=== PATIENT | male | born 1960 | race Caucasian/White ===

== ENCOUNTER 2017-02-28 21:56 | Inpatient (IN) | payer OTHER ==
[~2017-02-28] VITALS: Ht 175.3 cm; Wt 100.2 kg
[~2017-02-28 21:56] MED LIST: 0.9% Sodium Chloride 1,000 ML ONE; 0.9% Sodium Chloride 50 ML ONE; AMLO2.5T PO; ASPI-973 PO; ATOR20TA PO; Adenosine Inj 20 ML IV ONE; CLOP75TA3 PO; Heparin 1,000 Unit/mL 10 mL Inj ONE; Heparin 1,000 Units/500 mL NS Premix IV ONE; Heparin 10,000 Unit/1,000 mL NS Premix IV ONE; NITR0.4T SL; Nitroglycerin 50,000 mcg/250 mL D5W Premix IV ONE; RANI150T11 PO; fentaNYL-PF 50 mCg/mL 2 mL Inj ONE
[2017-02-28 22:06] VITALS: BP 149/72; PULSE 72; RESP 18; O2SAT 96
[2017-02-28] MEDS ORDERED: NITROGLYCERIN 0.6 MG SL PRN (22:15)
[2017-02-28] MEDS ORDERED: Heparin 5,000 Unit/mL Inj IVPUSH ONE (22:30)
[2017-02-28] MEDS ORDERED: Ondansetron 2 mg/mL 2 mL Inj IVPUSH PRN (22:30)
[2017-02-28] MEDS ORDERED: Heparin 5,000 Unit/mL Inj IVPUSH PRN (22:30)
[2017-02-28] MEDS ORDERED: Atropine 1 mg/10 mL (Code) Syringe IVPUSH PRN (22:30)
[2017-02-28] MEDS ORDERED: Senna-Docusate 8.6-50 mg Tablet PO PRN (22:30)
[2017-02-28] MEDS ORDERED: Polyethylene Glycol (PEG) 17 Gm Powder PO PRN (22:30)
[2017-02-28] MEDS ORDERED: Alum-Mag Hydrox-Simeth 30 mL Suspension PO PRN (22:30)
[2017-02-28] MEDS: Heparin 25K Unit/500mL 0.45 NS 25,000 UNIT in IV Premix 1 EACH IV SCH (23:17)
[2017-02-28] MEDS: 0.9% Sodium Chloride 1,000 ML IV SCH (23:20)
[2017-02-28 23:35] LABS: BASOPHILS % (AUTO) 0.3 % (0-3); EOSINOPHILS % (AUTO) 1.7 % (0-5); MONOCYTES % (AUTO) 7.8 % (4-12); Mean Corpuscular Hemoglobin 30.8 pg (27.0-35.0); Mean Corpuscular Volume 88.4 fL (81-100); NEUTROPHILS % (AUTO) 53.6 % (40-74); Platelet Count 148 bil/L (150-400)
[2017-03-01] VITALS (8 sets, daily range): BP systolic 119–142; BP diastolic 61–76; PULSE 50–77; RESP 18–22; O2SAT 95–98
--- NOTE | 2017-03-01 00:04 | PCM.HPMED ---
Subjective Date of Service Feb 28, 2017 Primary Provider: Admitting Physician: Da Shearer MD Primary Care Physician: Isma Hernandez MD Attending Physician: Da Shearer MD Chief Complaint: Chest pain History of Present Illness: Patient is a 56 year old male with history of CAD with history of KY and stents , GILL, and GERD who presents with chest pain. He was walking around on [facility] when he began to develop a sharp 7-8/10 central chest pain that radiated up to his neck and jaw and to his right arm. He reports associated shortness of breath with his pain, but had previously been in his usual state of health prior to the episode. He states he had been walking up and down hills yesterday without any dyspnea on exertion or chest discomfort. He does report intermittent left shoulder pain over the last 2 weeks, but states that this is not associated with exertion. He has a prior history of chronic left shoulder pain. He denies palpitations, dizziness, fainting, nausea, vomiting, diaphoresis , edema, leg pain, or any other symptoms at this time. EMS was called and he was taken by helicopter as a direct admit to [facility]. He was given aspirin and nitro on the way, and reports some relief of his chest pain. He has a history of admission for ACS on 08/19/2010 where he received a bare metal stent to the circumflex. He also received a drug eluting stent to the circumflex on 01/28/16. He was placed on dual antiplatelets for 1 year, and was taken off Plavix about 1 month ago. On arrival, vitals were stable with BP 149/72. Review of Systems: Comprehensive review of systems conducted and was negative except for the pertinent positives listed above. Allergies Coded Allergies: No Known Allergies (Unverified Allergy, Unknown, 01/28/16) enalapril (Unverified Allergy, Unknown, 01/28/16) from scanned pre cardio order Home Medications Amlodipine 2.5 mg daily Aspirin 81 mg dialy Atorvastatin 20 mg daily Nitroglycerin 0.4 mg SL PRN Ranitidine 150 mg BID PMH CAD with history of KY and baremetal and drug-coated stents to the circumflex Hyperlipidemia Obstructive sleep apnea GERD Surgical History Cardiac cath with stents Family History Multiple cousins and uncles - KY before age 60 Father: KY at age 42 No family history of diabetes or stroke Social History Hx Alcohol Use: No (occcasionally) Hx Substance Use: No Hx Tobacco Use: No Smoking Status: Never Smoker Exam Vital Signs Vital Sign - Last Date Time Temp Pulse Resp B/P Pulse Ox O2 Delivery O2 Flow Rate FiO2 02/28/17 22:06 36.8 72 18 149/72 96 Room Air Exam General: Alert, Oriented X3, Cooperative, No acute distress Head: Normocephalic, atraumatic. External ears normal. Eyes: PERRLA, EOMI. Anicteric sclerae. Mouth: Mouth normal, Mucous membranes moist/pink Neck: Neck supple with full range of motion. Chest& Lungs: Clear to auscultation bilaterally with no crackles, wheezes, or rhonchi. Cardiovascular: Regular rate/rhythm, Normal S1, Split S2, No murmurs/rubs/ gallops Abdomen: Non-tender, Non-distended, No masses, Normoactive bowel tones, Soft Musculoskeletal: Normal range of motion Extremities: No cyanosis/clubbing/edema bilaterally Neurological: Grossly neurologically intact. Normal speech Assessment & Plan Patient is a 56 year old male with history of CAD with history of KY and stents , GILL, and GERD who presents with chest pain. Acute chest pain. Present on admission. - Pt describes atypical chest pain, with a history of significant CAD with history of KY and stents. Describes sharp chest pain but no radiation to back, and pt is stable so dissection is unlikely. EKG showed Q waves and inverted T- waves in lead III. - Aspirin 81 mg daily - Clopidogrel 300 mg now and 75 mg daily - Nitro and morphine PRN - Oxygen as needed - Troponin and CK-MB ordered. Will trend troponin - Monitor on telemetry - Heparin gtt - Dr. Andrade will see in AM. We appreciate her input. - NPO after midnight. - Continue home atorvastatin Hyperlipidemia - Recent lipid panel 02/23/17: Chol 175, HDL 33, LDL 73, triglycerides 343. - Continue home atorvastatin GERD - Famotidine ordered Other Chronic Conditions CAD with history of KY and baremetal and drug-coated stents to the circumflex Obstructive sleep apnea - Bowel regimen as needed - Antiemetic as needed Patient is admitted under observation status with expected length of stay less than 2 midnights due to severity of presenting symptoms, risk of adverse event, and complexity of treatment plan. Ike Mazariegos Mar 01, 2017 00:03
[2017-03-01 00:19] LABS: Creatine Kinase 92 U/L (21-232); Magnesium 1.8 mg/dL (1.6-2.6)
[2017-03-01] MEDS: Sodium Chloride LOK Flush 10 mL Syringe IVFLUSH SCH ×4 (00:25→23:45)
[2017-03-01 05:03] LABS: BASOPHILS % (AUTO) 0.3 % (0-3); EOSINOPHILS % (AUTO) 1.4 % (0-5); MONOCYTES % (AUTO) 6.7 % (4-12); Mean Corpuscular Hemoglobin 31.2 pg (27.0-35.0); Mean Corpuscular Volume 88.4 fL (81-100); NEUTROPHILS % (AUTO) 56.9 % (40-74); Platelet Count 145 bil/L (150-400)
--- NOTE | 2017-03-01 05:57 | NUR ---
Admit Admitted to 3024 via EMS helicopter for evaluation and tx of CP. On arrival c/o 6/10 CP. Prn nitro SL administered x1 with initial decrease to 3/10 and then resolve of CP with no further episodes this shift. Tele SR along with EKG obtained during episode of CP. RA without c/o SOB. Denies n/v or issues with PO intake. Last BM reported 7/5 and denies issues with bowel or bladder. Good strength throughout without c/o dizziness or weakness. Heparin gtt initiated per cardiac protocol. Oriented to call light with return demonstration. Personal belongings at bedside per patient request.
[2017-03-01 06:20] LABS: Creatine Kinase 87 U/L (21-232)
--- NOTE | 2017-03-01 11:00 | NUR ---
heparin drip/ off unit Stopped heparin drip for stress test. 1115 CVL gave IV RX. Pt off unit at 1120. No s/s of distress. Addendum: 03/01/17 at 1342 by RODNEY SAEED RN patient back on unit at 1330. no s/s of distress. Addendum: 03/01/17 at 1510 by RODNEY SAEED RN Restarted heparin drip at 1000un/hr per protocol at 1508 after baseline ptt was drawn pt request d/t cp during stress test. Double verified with Jed Diaz.
--- NOTE | 2017-03-01 15:48 | NUR ---
Social Work: Screening/AM Multi-Disciplinary Rounds D: EMR reviewed. Pt is a 56 y/o male admitted for angina per H&P. Per MD in AM multi-disciplinary rounds, pt will be worked-up for stress test and echo today. SW met with pt at bedside, explained role, and wrote phone number on white board. Pt lives at home with his spouse in [place]. Pt's insurance is [employer] and PCP is Isma Hernandez. SW provided DPOA/advanced directive ppw and encouraged pt to return a copy to the hospital once complete. Pt states his spouse will transport him via POV when pt is medically stable. Per AM multi-disciplinary rounds, no discharge needs identified. SW will continue to follow if needs arise. A: Pt who is independent at baseline. P: Pt states his spouse will transport him via POV when pt is medically stable. Per AM multi-disciplinary rounds, no discharge needs identified. SW will continue to follow if needs arise. CHARLIE Dinero
--- NOTE | 2017-03-01 15:59 | DRSVH ---
PROCEDURE: 1 DAY TREADMILL STRESS TEST Rest and exercise myocardial perfusion SPECT with gated imaging and ejection fraction RADIOPHARMACEUTICAL: 11.1 mCi Tc-99m tetrafosmin IV at rest and 31.6 mCi Tc-99m tetrafosmin IV at pea k exercise. [id number] was performed. INDICATIONS: CHEST PAIN TECHNIQUE: Radiopharmaceutical was injected at peak stress test, and also at rest. SPECT images wer e obtained. SPECT myocardial perfusion images were displayed in short axis, horizontal long axis, an d vertical long axis views. Gated images were reviewed using Auto[employer]ANT software. COMPARISON: None. CARDIAC STRESS: A standard Dave treadmill exercise tolerance test was performed by the patient under the supervision of an attending staff. The patient exercised for 7 minutes and 2 seconds; functional aerobic impair ment (SHANE) is +25 %. Hemodynamic data: There is normal blood pressure and heart rate response to exercise stress. Patien t achieved 73% of maximum predicted heart rate at peak exercise. Symptoms: Patient had typical chest pain concerning for angina with radiation down arms and also had jaw discomfort. EKG: No diagnostic EKG changes of ischemia; no ectopy. FINDINGS: Raw data: There is good myocardial labeling by radiotracer. No significant motion artifacts. Left ventricle function: Gated images demonstrate normal left ventricle wall thickening. No segment al wall motion abnormality. The left ventricle resting end-diastolic volume is 102 mL. Left ventric le stress ejection fraction is 59%; normal values are above 45%. Myocardial perfusion: There is apical perfusion defect with moderate intensity noted on the supine s tress images. On prone stress images the defect actually worsens. On supine resting images the perfus ion defect completely normalizes. IMPRESSION: Moderately abnormal myocardial perfusion study. Apical reversible perfusion defect consis tent with ischemia most likely suggestive of LAD obstructive disease. Ejection fraction is normal. Ty pical exertional chest pain concerning for angina. Chest pain is limiting. Consider coronary angiogra phically to further delineate patient's coronary anatomy. Dictated by: Delmar Reyes Jr., M.D. on 03/01/2017 at 15:39 Approved by: Delmar Reyes Jr., M.D. on 03/01/2017 at 15:58
--- NOTE | 2017-03-01 17:40 | NUR ---
OFF unit Pt went to room 2017 to visit a friend. Tele notified and accompanied by a [employer] PSYCHIATRIST. Approved by charge nurse. No s/s of distress
--- NOTE | 2017-03-01 18:05 | CONS ---
[address] [address] CONSULTATION REPORT PATIENT: DAVID KRISHNAMURTHY : 1960 MR#: [id number] ADMIT: 02/28/2017 JOB ID: [id number] DATE OF SERVICE: 03/01/2017 CARDIOLOGY CONSULTATION: IDENTIFICATION: Dr. Baldwin has asked that I consult on this 56-year-old male with known coronary disease admitted with CAD and an abnormal stress test. HISTORY OF PRESENT ILLNESS: The patient's cardiac history dates back to July 2010 when he was admitted with a sharp midsternal chest discomfort radiating to the neck with abnormal troponins. Cardiac catheterization at that time revealed a 99% mid left circumflex stenosis that was successfully treated with a bare metal stent. There is mild disease in the LAD and the right coronary artery and an echocardiogram showed preserved LV systolic function. He subsequently did well and had a normal myocardial perfusion study at [facility] in April 2015. He has been followed by Dr. Andrade and was doing well until January 2016 when he again developed exertional chest discomfort radiating to the neck, particularly after meals. Cardiac catheterization now revealed a 50% stenosis in the mid LAD after this 1st diagonal and a 90% in-stent restenoses of the mid left circumflex that was successfully treated with a drug-eluting stent with an excellent angiographic result. There was no significant disease in the right coronary artery. He subsequently had resolution of his chest discomfort and again did well, and was most recently seen by Dr. Andrade on February 09, 2017, at which time his Plavix was stopped. He remained in his usual state of health and was quite active, without any symptoms until yesterday morning when he developed his usual chest discomfort radiating into the right neck that was steady, while walking to prepare lunch in his boat. This lasted around 5-10 minutes and subsequently resolved without any recurrence despite being fairly active but then returned following dinner yesterday evening. It was more severe. It came on at rest and worsened with walking, requiring him to stop. It improved but never completely resolved and medics were summoned and he was treated with nitroglycerin and aspirin with resolution of his symptoms. He was then transported to [facility] ED where he again had a brief episode of chest discomfort for around 5 minutes, again treated with sublingual nitroglycerin with relief of the discomfort, with none since then. He notes some slight dyspnea with these discomforts but none otherwise. He had no sense of any palpitations. He was admitted and has remained chest pain free but underwent exercise treadmill testing this afternoon with development of his chest discomfort. His EKG remained normal but on perfusion imaging, which I have personally reviewed, there is a small to moderate sized distal anterior and apical reversible defect consistent with ischemia. CARDIAC RISK FACTORS: No history of tobacco use or diabetes. He has had well-controlled hypertension. He has had hyperlipidemia, with his most recent lipid panel from February 23, 2017 showing a total cholesterol 175 with an HDL of 33 and an LDL of 73, with a triglyceride of 343. He has a fairly strong family history for coronary artery disease with a father having an AZ at less than 60 years old. PAST MEDICAL HISTORY: Notable for obstructive sleep apnea for which he uses CPAP on a regular basis. He has a history of chronically elevated abnormal liver function tests but these have normalized on his most recent laboratory. HOME MEDICATIONS: 1. Amlodipine 2.5 mg daily. 2. Atorvastatin 20 mg daily. 3. Ranitidine 150 mg b.i.d. 4. Aspirin 81 mg daily. ALLERGIES: No known drug allergies. FAMILY HISTORY: As above. His father had an AZ at age 42, and several cousins and uncles also had MIs before age 60. 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 He has one alcoholic beverage per week on average. He denies any recreational drug use. REVIEW OF SYSTEMS: A complete review is performed and is notable for the absence of any recent fevers or chills or weight change, with the exception of slow progressive weight gain over the past year. He denies any vision change or ENT problems. Denies any significant dyspnea, cough, hemoptysis. No history of peptic ulcer disease or GI blood loss. Denies any genitourinary complaints including any hematuria. No unusual musculoskeletal discomforts. Denies any neurologic symptoms. No history of any thyroid or bleeding disorder, or any unusual anxiety or depression. PHYSICAL EXAMINATION: Pleasant, mildly obese, but otherwise healthy-appearing middle-aged male in no distress. HR : 50s. BP 125/76. O2 saturation 95% on room air. Weight is 103.6 kg. Skin: Warm and dry. He is well tanned. HEENT: EOMI without arcus. He has good dentition. Lungs: Clear bilaterally to auscultation. No rales or wheeze. CV: Nonpalpable PMI with a regular rhythm with a normal S1 and S2 without any appreciable murmurs or gallops. There is no JVD. Carotid and femoral pulses are 2+ bilaterally with a normal upstroke without bruit. Dorsalis pedis pulses are 1+ bilaterally and posterior tibial pulses are 2+ bilaterally. Abdomen: Mildly obese, but nondistended and nontender, without any palpable masses or organomegaly. Normal bowel tones are present without bruits. Extremities: Warm, without any clubbing, cyanosis, or edema. Neuro: Moves all four extremities. Psych: Awake, alert, and oriented. LABORATORY: White count is 7.8 with hematocrit of 42%. Platelet count 145,000. Potassium is 4.1 with a BUN of 20 and a creatinine of 1.1. Glucose 123. A1c is pending. Troponins have remained negligible. TSH is normal at 2.5. LFTs are normal. EKG: Shows sinus rhythm at 73 beats per minute and is normal, without any acute ST-segment abnormalities. IMPRESSION: 1. Probable unstable angina. His description of his discomfort is quite compelling for angina given its similarity to his previous anginal pain. It was easily provoked on treadmill testing and, while there is no significant ECG change, perfusion imaging is quite suggestive of a mid to distal LAD distribution area of ischemia, suggesting progression of his previous known stenosis to now a significant degree. As such, I have recommended proceeding with cardiac catheterization and possible percutaneous revascularization. I have discussed the procedure, which he is very well familiar with, and he agrees to proceed. In the meantime, I would continue with IV heparin and his other medications with the exception of increasing his atorvastatin to 40 mg daily. I will contact Dr. Lerner, who will perform the procedure, with further recommendations dependent upon those results. 2. Hyperlipidemia. Inadequately controlled on his most recent lipid panel. I will increase his atorvastatin but he may benefit from changing to rosuvastatin if his triglycerides remain elevated. I will defer this to the outpatient setting and Dr. Andrade. 3. Obstructive sleep apnea. Apparently well controlled with the use of CPAP. 4. History of abnormal LFTs. They have now normalized. PLAN: 1. Continue current medications and proceed with cardiac catheterization in the morning with further recommendations dependent upon those results. 2. Increase his atorvastatin to 40 mg daily. 3. Continue close observation of his lipids as an outpatient. 4. Continue to monitor his blood sugar given the slight elevation noted on his fasting specimens this morning. His A1c is pending. TIME: I spent 1 hour and 34 minutes reviewing the patient's medical record, reviewing his perfusion imaging studies, interviewing and examining the patient, and answering his questions.
--- NOTE | 2017-03-01 18:24 | PCM.PNMED ---
Subjective Date of Service Mar 01, 2017 Subjective Patient is a 56 year old male with history of CAD with history of IA and stents , GILL, and GERD who presents with chest pain. He was walking around on [facility] when he began to develop a sharp 7-8/10 central chest pain that radiated up to his neck and jaw and h/is right arm. 03/01/17 - patient denies any pain currently. plan is for stress test today Exam Vital Signs Vital Sign - Last Date Time Temp Pulse Resp B/P Pulse Ox O2 Delivery O2 Flow Rate FiO2 03/01/17 17:35 36.6 67 20 142/72 95 Room Air 03/01/17 00:26 2.00 Intake and Output 02/28/17 02/28/17 03/01/17 Cumulative From/Thru 15:00 23:00 07:00 02/28/17 22:13 - 03/01/17 06:26 Intake Total 914 ml 914 ml Output Total 800 ml 800 ml Balance 114 ml 114 ml Intake Oral 200 ml 200 ml IV Total 714 ml 714 ml Output Urine Total 800 ml 800 ml Exam General: Alert, Oriented X3, Cooperative, No acute distress Head: Normocephalic, atraumatic. External ears normal. Eyes: PERRLA, EOMI. Anicteric sclerae. Mouth: Mouth normal, Mucous membranes moist/pink Neck: Neck supple with full range of motion. Chest& Lungs: Clear to auscultation bilaterally with no crackles, wheezes, or rhonchi. Cardiovascular: Regular rate/rhythm, Normal S1, Split S2, No murmurs/rubs/ gallops Abdomen: Non-tender, Non-distended, No masses, Normoactive bowel tones, Soft Musculoskeletal: Normal range of motion Extremities: No cyanosis/clubbing/edema bilaterally Neurological: Grossly neurologically intact. Normal speech Lab and Diagnostics Result Diagram: 03/01/17 0426 03/01/17 0426 Assessment & Plan Patient is a 56 year old male with history of CAD with history of IA and stents , GILL, and GERD who presents with chest pain. Acute chest pain. Present on admission. - Pt describes atypical chest pain, with a history of significant CAD with history of IA and stents. Describes sharp chest pain but no radiation to back, and pt is stable so dissection is unlikely. EKG showed Q waves and inverted T- waves in lead III. - Aspirin 81 mg daily and 75 mg daily - Nitro and morphine PRN - Oxygen as needed - Will trend troponin - Monitor on telemetry - Heparin gtt. - Continue home atorvastatin - wait cardiology evaluation Hyperlipidemia - Recent lipid panel 02/23/17: Chol 175, HDL 33, LDL 73, triglycerides 343. - Continue home atorvastatin GERD - Famotidine ordered Other Chronic Conditions CAD with history of IA and baremetal and drug-coated stents to the circumflex Obstructive sleep apnea - Bowel regimen as needed - Antiemetic as needed Disposition: pending stress test Pain Evaluation: Other Resuscitation Status: CPR: Attempt Resuscitation Siddharth Baldwin MD Mar 01, 2017 18:24
[2017-03-01] MEDS: 0.9% Sodium Chloride 1,000 ML IV SCH ×2 (23:26→23:45)
[2017-03-02] VITALS (17 sets, daily range): BP systolic 120–157; BP diastolic 56–84; PULSE 48–69; RESP 10–18; O2SAT 95–98
[2017-03-02] MEDS: Heparin 25K Unit/500mL 0.45 NS 25,000 UNIT in IV Premix 1 EACH IV SCH (03:07)
[2017-03-02 06:57] LABS: Mean Corpuscular Hemoglobin 31.2 pg (27.0-35.0); Mean Corpuscular Volume 87.5 fL (81-100)
[2017-03-02] MEDS: Sodium Chloride LOK Flush 10 mL Syringe IVFLUSH SCH (08:30)
--- NOTE | 2017-03-02 10:00 | NUR ---
PTT Heparin gtt infusing at 1050 units/hour. Call from lab, PTT 62. No change to heparin gtt. Call light in place, will continue to monitor. Addendum: 03/02/17 at 1240 by SHIKHA SANDHU RN Heparin gtt stopped at 1150, prior to being take to microbiology lab assistant. IV Saline locked.
--- NOTE | 2017-03-02 11:38 | PCM.PNMED ---
Subjective Date of Service Mar 02, 2017 Subjective Patient is a 56 year old male with history of CAD with history of ND and stents , GILL, and GERD who presents with chest pain. He was walking around on [facility] when he began to develop a sharp 7-8/10 central chest pain that radiated up to his neck and jaw and h/is right arm. 03/02/17 - patient denies any pain currently. He did go for stress test today that was abnormal there were some reversible deficits noted. Cardiology has seen him. The plan is for the Sql Ssrs Developer today concerns for patient and nursing staff. Exam Vital Signs Vital Sign - Last Date Time Temp Pulse Resp B/P Pulse Ox O2 Delivery O2 Flow Rate FiO2 03/02/17 09:06 36.4 55 18 155/80 98 Room Air 03/01/17 00:26 2.00 Intake and Output 03/01/17 03/01/17 03/02/17 Cumulative From/Thru 15:00 23:00 07:00 02/28/17 22:13 - 03/02/17 06:00 Intake Total 1660 ml 1857 ml 4431 ml Output Total 1650 ml 2450 ml Balance 10 ml 1857 ml 1981 ml Intake Oral 800 ml 636 ml 1636 ml IV Total 860 ml 1221 ml 2795 ml Output Urine Total 1650 ml 2450 ml # Voids 4 4 # Bowel Movements 0 0 Exam General: Alert, Oriented X3, Cooperative, No acute distress Head: Normocephalic, atraumatic. External ears normal. Eyes: PERRLA, EOMI. Anicteric sclerae. Mouth: Mouth normal, Mucous membranes moist/pink Neck: Neck supple with full range of motion. Chest& Lungs: Clear to auscultation bilaterally with no crackles, wheezes, or rhonchi. Cardiovascular: Regular rate/rhythm, Normal S1, Split S2, No murmurs/rubs/ gallops Abdomen: Non-tender, Non-distended, No masses, Normoactive bowel tones, Soft Musculoskeletal: Normal range of motion Extremities: No edema bilaterally Neurological: Grossly neurologically intact. Normal speech Lab and Diagnostics Result Diagram: 03/02/1760603/02/17 06 Assessment & Plan Patient is a 56 year old male with history of CAD with history of ND and stents , GILL, and GERD who presents with chest pain. Acute chest pain. Present on admission. Coronary artery disease with known history of PTCA and stenting Patient did have abnormal stress test. The plan is for crime lab analyst today. Pending results of whether not he needs further stenting or not will determine his discharge planning. Otherwise he is continued on heparin drip has been on aspirin Plavix statin. Continue with telemetry. Again his chest she has resolved she has been asymptomatic since he has been here Hyperlipidemia - Recent lipid panel 02/23/17: Chol 175, HDL 33, LDL 73, triglycerides 343. - Continue home atorvastatin GERD - Famotidine ordered Other Chronic Conditions CAD with history of ND and bare metal and drug-coated stents to the circumflex Obstructive sleep apnea - Bowel regimen as needed - Antiemetic as needed Disposition: pending Sql Ssrs Developer Resuscitation Status: CPR: Attempt Resuscitation Siddharth Baldwin MD Mar 02, 2017 11:38
[2017-03-02] MEDS: 0.9% Sodium Chloride 1,000 ML IV SCH (11:56)
--- NOTE | 2017-03-02 12:00 | NUR ---
Off the unit Pt taken from [facility] to label maker via bed. No complains of increased pain, chest discomfort or pressure. Pt instructed to void prior to leaving. IV saline locked x 2.
--- NOTE | 2017-03-02 14:14 | DI95 ---
[place] [id number] INTERVENTIONAL CARDIAC CATHETERIZATION PATIENT: DAVID KRISHNAMURTHY : 1960 MR#: [id number] ADMIT: 02/28/2017 JOB ID: [id number] DATE: 03/02/2017 PATIENT PROFILE: The patient is a 56-year-old male with history of dyslipidemia and family history of coronary artery disease. He had stent placement to the circumflex artery in July of 2010 and January of 2016. He experienced recurrent chest discomfort. PROCEDURE: 1. Retrograde left heart catheterization. 2. Selective coronary angiography. 3. Fractional flow reserve to the mid left anterior descending. 4. Balloon angioplasty and stenting to the distal left anterior descending. 5. Left ventricular angiogram. VASCULAR CLOSURE DEVICE: StarClose. COMPLICATIONS: None. METHOD: Retrograde left heart catheterization was performed from the right groin under 1% lidocaine local anesthesia using a 6-Togolese sheath. Selective coronary angiogram was performed in multiple projections, including cranial and caudal angulations with hand injected contrast via JL4 and 3DRC catheters. Heparin 3,000 units were given. A 6-Togolese JL-4 guide was advanced to the left coronary ostium. A flow wire was directed into the left anterior descending artery. Adenosine was given infusion IV. FFR of the mid left anterior descending artery was measured at 0.89. Additional 8,000 units were given. A Run-through wire was placed inside the left anterior descending artery. A guideliner was used for better support.The distal left anterior descending artery lesion was pre-dilated with a 2.0 x 15 mm balloon. A Xience 2.25 x 15 mm stent was placed inside the distal left anterior descending artery lesion and deployed at 12 atmospheres for 25 seconds. Nitroglycerin 100 mcg was given intracoronary. Final angiogram was obtained. A 6-Togolese angulated pigtail catheter was advanced to the left ventricle and left ventricular angiogram was performed in the 30 degree COLBERT view by injecting contrast at the rate of 10 cc/second for 3 seconds. This catheter was withdrawn. Right femoral angiogram was performed. Following sheath removal, hemostasis was achieved by using a StarClose device. The patient tolerated the procedure well. He was transferred to [facility] in good condition. TOTAL CONTRAST USED: 90 cc. FLUOROSCOPY TIME: 5.5 minutes. RESULTS: 1. Selective coronary angiogram: a. Left main coronary artery is normal. b. The left anterior descending artery is transapical and has long 60 % stenosis in the mid portion and 80% stenosis in the distal portion distal to the takeoff of the second diagonal branch. The very distal part of the left anterior descending artery around the apex has long 70% stenosis. The diagonal branches have minor irregularity. c. The circumflex artery has minor irregularity. The previous stent site remains patent. d. The dominant and large right coronary artery has 30% stenosis in the mid portion. 2. FFR of the mid left anterior descending artery is 0.89, which indicates nonhemodynamic significant stenosis. 3. Balloon angioplasty and stenting was performed to the distal left anterior descending artery by deploying one drug eluting stent (2.25 x 15 mm) to achieve an excellent angiographic result with TIARA-3 flow distally. 4. Left ventricular angiogram demonstrates normal left ventricular systolic function (LVEF 60%). There is no wall motion abnormality. There is no mitral regurgitation. 5. There is no gradient across the aortic valve on catheter withdrawal. 6. Aortic pressure is 134/62 mmHg. Left ventricular pressure is 134/2 mmHg. 7. Left ventricular end-diastolic is 12 mmHg. CONCLUSION: 1. Patent left circumflex artery stent. 2. Moderate disease of the mid left anterior descending artery with severe 80% stenosis of the distal left anterior descending. 3. The distal left anterior descending artery lesion was successfully treated with one drug eluting stent. 4. Left ventricular ejection fraction 60%. 5. Left ventricular end-diastolic pressure is 12 mmHg. MTDD
--- NOTE | 2017-03-02 16:32 | NUR ---
Report called to Jessy Isabel R.N and handoff at bedside upon transfer.Prior to transfer right groin dressing noted to be partially saturated. Dressing removed, ultrafoam placed over site with gauze, secured with opsite and 5 lb weight replaced over site. No c/o undue discomfirt at groin site. He remains chest pain free, sinus rhythm, occasionally decreasing to 47 range.V.S.S. Pt's at the bedside.
--- NOTE | 2017-03-02 17:15 | NUR ---
Transfer of care Report called to Kaden Cristina Pt transferred to 2025.
[2017-03-02] MEDS ORDERED: 0.9% Sodium Chloride 250 ML BOLUS IV PRN (18:10)
[2017-03-02] MEDS ORDERED: Sodium Chloride LOK Flush 10 mL Syringe IVFLUSH PRN (18:10)
[2017-03-02] MEDS ORDERED: Ondansetron 2 mg/mL 2 mL Inj IVPUSH PRN (18:10)
[2017-03-02] MEDS ORDERED: Atropine 1 mg/10 mL (Code) Syringe IVPUSH PRN (18:10)
[2017-03-02] MEDS ORDERED: 0.9% Sodium Chloride 1,000 ML IV ONE (18:15)
--- NOTE | 2017-03-02 19:04 | NUR ---
Post cath/Oozing Patient a/o x 4, arrived to 2021 from [facility] at approx 1630. Patient denies pain, nausea or sob. VSS, tele SB-SR 50-60's. Right groin site soft apon arrival to floor, approx 1 hr patient right groin drsg saturated and hardened around puncture site. library clerical assistant in to assess groin site. Drsg changed and manual pressure done for 7 min. [address] L[address]bag remains in[address]. Dr Hummel paged and orders recieved to cont bedrest until a.m.
[2017-03-03 03:08] VITALS: BP 154/85; PULSE 67; RESP 12; O2SAT 95
[2017-03-03 03:45] LABS: Mean Corpuscular Hemoglobin 31.2 pg (27.0-35.0); Mean Corpuscular Volume 87.1 fL (81-100)
--- NOTE | 2017-03-03 03:57 | NUR ---
P: R groin cath site oozing I: change dressing, 5lb sandbag, keep R leg straight E: Denies pain, dyspnea, N/V. R groin tender, soft. At 2130 manual pressure held for 10 minutes and replace dressing w/ rolled 4x4 and pressure tape. No further oozing. R pulse intact. Tele SR. Moderately high BP. RA sats in mid 90s. Voiding via urinal. RA sats mid 90s. Occasionally snores.
[2017-03-03 05:28] VITALS: PULSE 70
[2017-03-03 08:43] VITALS: BP 143/87; PULSE 66; RESP 16; O2SAT 96
[2017-03-03 08:44] VITALS: PULSE 76
--- NOTE | 2017-03-03 09:13 | NUR ---
Groin site stable/up ad isaac VVS, SR 69. Rt groin site without further oozing; no hematoma. Distal pulses 1+, equal. Dsg removed, op-site placed & pt teaching reviewed regarding observation & care of groin site. Ambulating in saha without difficulty; denies chest pain.
[2017-03-03] MEDS ORDERED: CLOP75TA3 PO (10:45)
[2017-03-03] MEDS ORDERED: METO25TA99 PO (10:45)
[2017-03-03] MEDS ORDERED: ATOR20TA PO (10:45)
--- NOTE | 2017-03-03 10:52 | PCM.DIMED ---
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 teacher Continue Aspirin 81 mg daily Clopidogrel (Plavix) 75 mg daily for one year (04/03/17) or until reviewed by your grades 1 thru 6 home teacher Nitroglycerin sublingual tablet as needed for chest pain Changes Increased Atorvastatin from 20 mg to 40 mg daily Diet Discharge Diet: Heart Healthy (Decrease your red meat consumption) Activity Discharge Activity: Other (Avoid lifting more than 5 lbs of weight and light activity for 1 week.) Call your provider Call your provider for: Fever or Chills, Shortness of breath, Bleeding, Chest pain, Weakness (unilateral) Patient Instructions Patient Instructions New Medications Metoprolol 25 mg once daily until reviewed by 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 Andrade in 2-4 weeks. Avoid lifting more than 5 lbs for the next week. Light activity for 1 week, then may advance activity level as tolerated. Try to make dietary modifications and work on exercising regularly We have ordered cardiac rehab for you. Book recommedations: Author Dr. Aníbal Pisano - [facility] - Un[facility] - Track your Plaque Follow-up Provider: Isma Hernandez MD Follow-up with PCP in: 1 week (1-2 weeks) Provider: Renu Andrade MD Follow-up in: 2 weeks (2-4 weeks) Rigo Forde MD 03/03/17 1708: Discharge Instructions Attending's Statement The patient was seen and examined together with Dr. Johnson on 03/03/2017 and I agree with the history, exam and plan as outlined in the note above. . Nav Johnson DO Mar 03, 2017 10:39 Rigo Forde MD Mar 03, 2017 17:08
[2017-03-03] MEDS ORDERED: NITR0.4T SL (11:47)
--- NOTE | 2017-03-03 13:45 | NUR ---
Discharge Discharge packet including meds, follow-up appts, instructions reviewed in detail & signed by pt. 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 In w/c accompanied by RN & his family to waiting vehicle, destination his home.
--- NOTE | 2017-03-03 13:46 | NUR ---
Social Work: Multidisciplinary Rounds/Discharge D: Pt discussed in am rounds. Pt is medically stable for discharge. Pt transferred up to [facility] after stent placement yesterday. Pt has active D/c orders. MD and team have no concerns about pt's capacity for self care and pt has been participating in all self care during admission. No sw or discharge needs identified. A: Pt who is I at baseline. P: Pt to discharge home via POV and no sw needs. CHARLIE Her
--- NOTE | 2017-03-03 16:00 | PCM.DC.MED ---
Discharge Summary Date of Service Mar 03, 2017 Dates of Hospitalization Date of Hospital Admission Feb 28, 2017 at 21:56 Date of Discharge: Mar 03, 2017 Providers: Admitting Physician: Da Shearer MD Primary Care Physician: Isma Hernandez MD Attending Physician: Rigo Forde MD Research Group Director: Genevieve Johnson DO Diagnosis at Time of Discharge Diagnosis at Time of Discharge Unstable Angina s/p stenting to LAD (03/02/17) Coronary artery disease with known history of PTCA and stenting Hyperlipidemia GERD Obstructive Sleep Apnea Consultations Cardiology, Dr. Durand Procedures ECG 12 Lead Q waves and inverted T-waves in lead III on EKG Invasive Procedures PROCEDURE: 1. Retrograde left heart catheterization. 2. Selective coronary angiography. 3. Fractional flow reserve to the mid left anterior descending. 4. Balloon angioplasty and stenting to the distal left anterior descending. 5. Left ventricular angiogram. RESULTS: 1. Selective coronary angiogram: a. Left main coronary artery is normal. b. The left anterior descending artery is transapical and has long 60 % stenosis in the mid portion and 80% stenosis in the distal portion distal to the takeoff of the second diagonal branch. The very distal part of the left anterior descending artery around the apex has long 70% stenosis. The diagonal branches have minor irregularity. c. The circumflex artery has minor irregularity. The previous stent site remains patent. d. The dominant and large right coronary artery has 30% stenosis in the mid portion. 2. FFR of the mid left anterior descending artery is 0.89, which indicates nonhemodynamic significant stenosis. 3. Balloon angioplasty and stenting was performed to the distal left anterior descending artery by deploying one drug eluting stent (2.25 x 15 mm) to achieve an excellent angiographic result with TIARA-3 flow distally. 4. Left ventricular angiogram demonstrates normal left ventricular systolic function (LVEF 60%). There is no wall motion abnormality. There is no mitral regurgitation. 5. There is no gradient across the aortic valve on catheter withdrawal. 6. Aortic pressure is 134/62 mmHg. Left ventricular pressure is 134/2 mmHg. 7. Left ventricular end-diastolic is 12 mmHg. CONCLUSION: 1. Patent left circumflex artery stent. 2. Moderate disease of the mid left anterior descending artery with severe 80% stenosis of the distal left anterior descending. 3. The distal left anterior descending artery lesion was successfully treated with one drug eluting stent. 4. Left ventricular ejection fraction 60%. 5. Left ventricular end-diastolic pressure is 12 mmHg. Other Diagnostics PROCEDURE: 1 DAY TREADMILL STRESS TEST CARDIAC STRESS: A standard Dave treadmill exercise tolerance test was performed by the patient under the supervision of an attending staff. The patient exercised for 7 minutes and 2 seconds; functional aerobic impairment (SHANE) is +25 %. Hemodynamic data: There is normal blood pressure and heart rate response to exercise stress. Patient achieved 73% of maximum predicted heart rate at peak exercise. Symptoms: Patient had typical chest pain concerning for angina with radiation down arms and also had jaw discomfort. EKG: No diagnostic EKG changes of ischemia; no ectopy. FINDINGS: Raw data: There is good myocardial labeling by radiotracer. No significant motion artifacts. Left ventricle function: Gated images demonstrate normal left ventricle wall thickening. No segmental wall motion abnormality. The left ventricle resting end-diastolic volume is 102 mL. Left ventricle stress ejection fraction is 59% ; normal values are above 45%. Myocardial perfusion: There is apical perfusion defect with moderate intensity noted on the supine stress images. On prone stress images the defect actually worsens. On supine resting images the perfusion defect completely normalizes. IMPRESSION: Moderately abnormal myocardial perfusion study. Apical reversible perfusion defect consistent with ischemia most likely suggestive of LAD obstructive disease. Ejection fraction is normal. Typical exertional chest pain concerning for angina. Chest pain is limiting. Consider coronary angiographically to further delineate patient's coronary anatomy. Dictated and approved by: Delmar Reyes Jr., M.D. on 03/01/2017 at 15:39 Brief History Fish Fairchild is a 56 year old gentleman with past medical history of CAD with KS and stents x2 (2009, 2016), GILL, and GERD who presented with chest pain. He was walking around on [facility] when he began to develop a sharp 7-8/10 central chest pain that radiated up to his neck and jaw and to his right arm and associated shortness of breath with exertion. On admission, he had troponin x2 at 0.010, with Q waves and inverted T-waves in lead III on EKG. He was admitted for unstable angina. Treadmill stress test reproduced his symptoms fairly quickly and Dr. Druand was consulted for cardiac catheterization. On cardiac catherization, he was found to have 80% occlusion of the LAD and was subsuquently stented successfully. Following the procedure, patient feeling well. He was discharged on Plavix, aspirin, nitroglycerin, metoprolol and atorvastatin. Hospital Course Patient is a 56 year old male with history of CAD with history of KS and stents , GILL, and GERD who presented with chest pain. Acute chest pain. Present on admission. Pt described atypical chest pain, with a history of significant CAD with history of KS and stents. Describes sharp chest pain but no radiation to back, and pt is stable so dissection is unlikely. EKG showed Q waves and inverted T- waves in lead III. - Aspirin 81 mg daily, Clopidogrel 300 mg now and 75 mg daily, Nitro and morphine PRN - Oxygen as needed - Troponinx2 0.010 - Monitored on telemetry - Heparin gtt - Cardiac cath with stenting to LAD 03/02/17 Coronary artery disease with known history of PTCA and stenting Patient did have abnormal stress test. 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 Hyperlipidemia - Recent lipid panel 02/23/17: Chol 175, HDL 33, LDL 73, triglycerides 343. - Continued home atorvastatin GERD - Famotidine ordered CAD with history of KS and bare metal and drug-coated stents to the circumflex Obstructive sleep apnea, chronic Exam Vital Signs (Last) Date Time Temp Pulse Resp B/P Pulse Ox O2 Delivery O2 Flow Rate FiO2 03/03/17 08:44 76 03/03/17 08:43 37.0 16 143/87 96 Room Air 03/01/17 00:26 2.00 Exam General: Alert, Oriented X3, Cooperative, No acute distress Head: Normocephalic, atraumatic. External ears normal. Eyes: PERRLA, EOMI. Anicteric sclerae. Mouth: Mouth normal, Mucous membranes moist/pink Neck: Neck supple with full range of motion. Chest& Lungs: Clear to auscultation bilaterally with no crackles, wheezes, or rhonchi. Cardiovascular: Regular rate/rhythm, No murmurs/rubs/gallops Abdomen: Non-tender, Non-distended, No masses, Normoactive bowel tones, Soft Musculoskeletal: Normal range of motion Extremities: No cyanosis/clubbing/edema bilaterally Neurological: Grossly neurologically intact. Normal speech Test 02/28/17 23:15 03/01/17 04:26 03/02/17 08:28 03/03/17 03:05 Hemoglobin A1c 5.5% (4.8-5.6) Magnesium Level 1.8mg/dL (1.6-2.6) Total Bilirubin 0.4mg/dL (0.0-1.2) Aspartate Amino Transf (AST/SGOT) 22U/L (0-50) Alanine Aminotransferase (ALT/SGPT) 29U/L (0-44) Alkaline Phosphatase 59U/L (25-150) Total Protein 5.6g/dL (6.4-8.4) Albumin 3.7g/dL (3.4-5.0) Thyroid Stimulating Hormone (TSH) 2.510uIU/mL (0.450-4.500) Neutrophils (%) (Auto) 56.9% (40-74) Lymphocytes (%) (Auto) 34.4% (14-46) Monocytes (%) (Auto) 6.7% (4-12) Eosinophils (%) (Auto) 1.4% (0-5) Basophils (%) (Auto) 0.3% (0-3) Total Creatine Kinase 87U/L (21-232) Creatine Kinase MB 1.9ng/mL (0.0-10.4) Creatine Kinase MB % % (0.0-5.0) Troponin T 0.010ug/L (0.0-0.011) Activated Partial Thromboplast Time 62.0sec (22.8-33.0) White Blood Count 9.8th/mm3 (3.8-10.1) Red Blood Count 5.19mil/mm3 (4.40-5.80) Hemoglobin 16.2g/dL (13.8-17.2) Hematocrit 45.2% (41.0-50.0) Mean Corpuscular Volume 87.1fL (81-100) Mean Corpuscular Hemoglobin 31.2pg (27.0-35.0) Mean Corpuscular Hemoglobin Concent 35.8% (32.0-37.0) Red Cell Distribution Width 13.0% (12.3-15.4) Platelet Count 146bil/L (150-400) Sodium Level 141mEq/L (134-144) Potassium Level 3.9mEq/L (3.5-5.2) Chloride Level 103mEq/L (97-108) Carbon Dioxide Level 22mmol/L (18-29) Blood Urea Nitrogen 17mg/dL (6-24) Creatinine 1.00mg/dL (0.76-1.27) Estimat Glomerular Filtration Rate 82mL/min (>59) Glucose Level 100mg/dL (60-99) Calcium Level 9.3mg/dL (8.5-10.1) Discharge Medications Discharge Medications Aspirin (Aspirin) 81 Mg Tablet 81 MG PO DAILY (Reported) Atorvastatin (Lipitor) 20 Mg Tablet 40 MG PO DAILY Prescribed by: GENEVIEVE JOHNSON, Clopidogrel Bisulfate (Plavix) 75 Mg Tablet 75 MG PO DAILY Prescribed by: GENEVIEVE JOHNSON, Metoprolol Succinate ER (Metoprolol Succinate ER) 25 Mg Tab.er.24h 25 MG PO DAILY Prescribed by: GENEVIEVE JOHNSON, Nitroglycerin SL (Nitrostat) 0.4 Mg Tab.subl 0.4 MG SL Q5MIN (Reported) Ranitidine (Zantac) 150 Mg Tablet 150 MG PO BID (Reported) As needed Nitroglycerin SL (Nitrostat) 0.4 Mg Tab.subl 0.4 MG SL Q5MIN PRN PRN For Chest Pain IF SBP > 90 Prescribed by: GENEVIEVE JOHNSON, Additional med instructions New Medications Metoprolol 25 mg once daily until reviewed by your twister frame tender Continue Aspirin 81 mg daily Clopidogrel (Plavix) 75 mg daily for one year (04/03/17) or until reviewed by your twister frame tender Nitroglycerin sublingual tablet as needed for chest pain Changes Increased Atorvastatin from 20 mg to 40 mg daily Followup Plan Discharge Diet: Heart Healthy Discharge Activity: Other (Avoid lifting more than 5 lbs of weight and light activity for 1 week.) Patient Instructions New Medications Metoprolol 25 mg once daily until reviewed by your twister frame tender Continue Aspirin 81 mg daily Clopidogrel (Plavix) 75 mg daily for one year (04/03/17) or until reviewed by your twister frame tender Nitroglycerin sublingual tablet as needed for chest pain Changes Increased Atorvastatin from 20 mg to 40 mg daily Follow up with your primary care provider within 1-2 weeks Follow up with Dr. Andrade in 2-4 weeks. Avoid lifting more than 5 lbs for the next week. Light activity for 1 week, then may advance activity level as tolerated. Try to make dietary modifications and work on exercising regularly We have ordered cardiac rehab for you. Book recommedations: Author Dr. Aníbal Pisano - [facility] - Un[facility] - Track your Plaque Follow-up Provider: Isma Hernandez MD Follow-up with PCP in: 1 week (1-2 weeks) Provider: Renu Andrade MD Follow-up in: 2 weeks (2-4 weeks) Cardiac Rehab: 1 week Time spent Greater than 30 minutes was spent in preparation of discharge with greater than 50% of that time dedicated to patient counseling and coordination of care. . Attending Statement The patient was seen and examined together with Dr. Johnson on 03/03/2017 and I agree with the history, exam and plan as outlined in the note above. . copies to: Isma Hernandez MD; Renu Andrade MD, Malik A DO Mar 03, 2017 15:36 Riog Forde MD Mar 03, 2017 17:11
== END 2017-03-03 13:15 | disposition home or self-care (01) | DRG 247 ==
LOC: OBSVTOIN 21:56 → INTOOBSV 21:56 → MPC 21:56 → PCC 03-02 16:10
PROVIDERS: ADMIT Internal Medicine; ATTEND Internal Medicine
PROC: 027034Z Dilation of Coronary Artery, One Artery with Drug-eluting Intraluminal Device, Percutaneous Approach (ICD-10-PCS; principal; 2017-03-02)
PROC: 4A023N7 Measurement of Cardiac Sampling and Pressure, Left Heart, Percutaneous Approach (ICD-10-PCS; 2017-03-02)
PROC: B2151ZZ Fluoroscopy of Left Heart using Low Osmolar Contrast (ICD-10-PCS; 2017-03-02)
DX: I25.110 Atherosclerotic heart disease of native coronary artery with unstable angina pectoris (principal); E78.5 Hyperlipidemia, unspecified; K21.9 Gastro-esophageal reflux disease without esophagitis; G47.33 Obstructive sleep apnea (adult) (pediatric); I25.2 Old myocardial infarction; Z95.5 Presence of coronary angioplasty implant and graft; I10 Essential (primary) hypertension

== ENCOUNTER 2017-05-05 18:42 | Observation (INO) | payer OTHER ==
[~2017-05-05] VITALS: Ht 175.3 cm; Wt 97.2 kg
[~2017-05-05 18:42] MED LIST changes: -0.9% Sodium Chloride 1,000 ML ONE; -0.9% Sodium Chloride 50 ML ONE; -AMLO2.5T PO; -Adenosine Inj 20 ML IV ONE; -Heparin 1,000 Unit/mL 10 mL Inj ONE; -Heparin 1,000 Units/500 mL NS Premix IV ONE; -Heparin 10,000 Unit/1,000 mL NS Premix IV ONE; +METO-386 PO; -Nitroglycerin 50,000 mcg/250 mL D5W Premix IV ONE; -fentaNYL-PF 50 mCg/mL 2 mL Inj ONE
[2017-05-05 18:47] VITALS: BP 164/92; PULSE 60; RESP 16; O2SAT 97
[2017-05-05 19:48] LABS: BASOPHILS % (AUTO) 0.2 % (0-3); EOSINOPHILS % (AUTO) 0.7 % (0-5); MONOCYTES % (AUTO) 5.5 % (4-12); Mean Corpuscular Hemoglobin 31.5 pg (27.0-35.0); Mean Corpuscular Volume 88.3 fL (81-100); NEUTROPHILS % (AUTO) 65.2 % (40-74); Platelet Count 164 bil/L (150-400)
--- NOTE | 2017-05-05 20:05 | DRSVH ---
PROCEDURE: X-RAY CHEST ONE VIEW, PORTABLE ([id number]) INDICATIONS: 57 year-old male with chest pain. TECHNIQUE: One view of the chest was acquired. COMPARISON: [facility], CR, XR CHEST 2VW, 01/27/2016, 9:34. [facility], , CHEST 1 VIEW, 05/25/2015, 21:06. [facility], , CHEST 1VW (PORTABLE), 08/19/2010, 17:54. FINDINGS: Surgical changes and devices: None. Lungs and pleura: No pleural effusions or pneumothorax. Lungs are clear. Mediastinum: Mediastinal contours appear normal. Heart size is normal. Bones and chest wall: No suspicious bony lesions. Overlying soft tissues appear unremarkable. IMPRESSION: No acute cardiopulmonary disease. Dictated by: Floyd Gil M.D. on 05/05/2017 at 20:03 Approved by: Floyd Gil M.D. on 05/05/2017 at 20:04
[2017-05-05 20:12] LABS: TROPONIN T 0.029 ug/L (0.0-0.011)
[2017-05-05 20:23] LABS: Magnesium 1.9 mg/dL (1.6-2.6)
--- NOTE | 2017-05-05 21:24 | ED.REPORT ---
HPI-General Illness Date of Service May 05, 2017 ED Provider: Aníbal Bartlett MD A 56 year old male with history of CAD with history of CT and stents, GILL, and GERD presents to the ED following an episode of dull, midsternal, 3/10 chest pain that occurred this afternoon just prior to arrival. Lab work from Dr. Reyes's office was resulted today revealed an abnormality and the patient was directed to the ED for repeat labs. Patient is completely asymptomatic upon initial examination and his pain has resolved without intervention. He admits to one episode of chest discomfort and anxiety this afternoon after receiving the results from his labs. Patient does not believe his chest pain this afternoon was anginal. The pain does not radiate anywhere outside of his chest. Current medication list includes baby aspirin daily and he recently began taking metoprolol again 3 days ago. Patient denies any SOB, fever, chills, nausea, vomiting, diaphoresis, visual changes, diarrhea, constipation, hematochezia, hematemesis, dysuria, hematuria, headache, dizziness, lightheadedness, unilateral weakness, numbness or swelling. 03/02/17: LAD stent Moderate disease of the mid left anterior descending artery with severe 80% stenosis of the distal left anterior descending. Left ventricular EF - 60%. Nursing Notes Stated Complaint: HEART ISSUES/SENT BY DR CARMONA Chief Complaint: Chest Pain Nursing Notes Reviewed: Yes Allergies: Coded Allergies: enalapril (Unverified Allergy, Unknown, 01/28/16) from scanned pre cardio order Scheduled Aspirin (Aspirin) 81 Mg Tablet 81 MG PO DAILY Atorvastatin (Lipitor) 20 Mg Tablet 40 MG PO DAILY Clopidogrel Bisulfate (Plavix) 75 Mg Tablet 75 MG PO DAILY Metoprolol Succinate ER (Metoprolol Succinate ER) 25 Mg Tab.er.24h 25 MG PO DAILY Ranitidine (Zantac) 150 Mg Tablet 150 MG PO BID Scheduled PRN Nitroglycerin SL (Nitrostat) 0.4 Mg Tab.subl 0.4 MG SL Q5MIN PRN PRN For Chest Pain IF SBP > 90 General Time Seen by MD: 20:31 Chief Complaint Chest pain Hx Obtained From: Patient Arrived By: Walk-in Sudden in Onset?: No Onset Occurred: 5 - 8 hours ago Symptom Duration: 1 - 15 minutes Location: : Chest Quality: Dull Radiation: : Does not radiate Severity: Current: Pain level 2 out of 10 Severity: Maximum: Pain level 3 out of 10 Associated with: Reports: Chest pain, Denies: Diaphoresis, Dizziness, Fever, Headache, Nausea, Numb extremities, Shortness of breath, Vision change, Vomiting, Weakness Pertinent Negative: Pt denies other symptoms Recent Healthcare: Recent doctor visit, Recent hospitalization Similar Sx Previous: Yes Past Medical History Past Medical History Notes: LAD stent (03/02/17) - Moderate disease of the mid left anterior descending artery with severe 80% stenosis of the distal left anterior descending & Left ventricular ejection fraction 60%. Past Medical History 1. CAD with history of CT and stents 2. GILL 3. GERD Past Surgical History 1. Cardiac stent placement (2010 & 2016) Smoking History Never Smoker Social History Alcohol Use: Denies alcohol use Drug Use: Denies drug use Other Social History: Good social support, , Local resident Ambulatory Status Independent Review of Systems Full Review of Systems Constitutional: Denies: Chills, Fever Eyes: Denies: Blurred bilateral Ears / Nose / Throat: Denies: Nasal congestion Respiratory: Denies: Shortness of breath Cardiovascular: Reports: Chest pain GI: Denies: Constipation, Diarrhea, Hematemesis, Hematochezia, Nausea, Vomiting Male: Denies Dysuria, Denies Hematuria Musculoskeletal: Denies: Back pain Hematologic: Denies Bruising Skin: Denies Diaphoresis Allergy / Immune: Denies: Itching Neurologic: Denies: Dizziness, Headache, Lightheaded, Vision change, Weakness Psychiatric: Denies: Change mental status Complete sys rev & neg: except as marked. Physical Exam Nursing note and vitals reviewed. Constitutional: Well-developed, well-nourished. Not diaphoretic. Slightly anxious. Head: Normocephalic and atraumatic. Mouth/Throat: Oropharynx is clear and moist. No oropharyngeal exudate. Eyes: EOM are normal. Pupils are equal, round, and reactive to light. Neck: Supple, no tracheal deviation. Cardiovascular: Bradycardic, regular rhythm. Equal and intact distal pulses throughout. Pulmonary/Chest: Effort normal and breath sounds normal. No respiratory distress. Abdominal: Soft. No distension. There is no tenderness, rebound, or guarding. Musculoskeletal: Range of motion grossly intact, moving all extremities. No edema or tenderness appreciated. Neurological: AOx3. Grossly nonfocal exam. Strength and sensation intact and equal to bilateral upper and lower extremities. Skin: Warm and dry, no rashes or pallor appreciated. Psychiatric: Somewhat anxious, otherwise appropriate mood and affect. Behavior appears normal. Vital Signs Vital Signs Date Time Temp Pulse Resp B/P Pulse Ox O2 Delivery O2 Flow Rate FiO2 05/05/17 23:08 57 16 151/65 95 Room Air 05/05/17 18:47 36.6 60 16 164/92 97 Room Air Initial VS: Reviewed Interpretation & Diagnostics Lab Results Interpretation Result Diagram: 05/05/17192905/05/171929 Test 05/05/17 19:30 White Blood Count 9.8th/mm3 (3.8-10.1) Red Blood Count 4.96mil/mm3 (4.40-5.80) Hemoglobin 15.6g/dL (13.8-17.2) Hematocrit 43.8% (41.0-50.0) Mean Corpuscular Volume 88.3fL (81-100) Mean Corpuscular Hemoglobin 31.5pg (27.0-35.0) Mean Corpuscular Hemoglobin Concent 35.6% (32.0-37.0) Red Cell Distribution Width 12.5% (12.3-15.4) Platelet Count 164bil/L (150-400) Neutrophils (%) (Auto) 65.2% (40-74) Lymphocytes (%) (Auto) 28.2% (14-46) Monocytes (%) (Auto) 5.5% (4-12) Eosinophils (%) (Auto) 0.7% (0-5) Basophils (%) (Auto) 0.2% (0-3) Activated Partial Thromboplast Time 29.4sec (22.8-33.0) Sodium Level 139mEq/L (134-144) Potassium Level 4.1mEq/L (3.5-5.2) Chloride Level 100mEq/L (97-108) Carbon Dioxide Level 24mmol/L (18-29) Blood Urea Nitrogen 19mg/dL (6-24) Creatinine 0.99mg/dL (0.76-1.27) Estimat Glomerular Filtration Rate 83mL/min (>59) Glucose Level 96mg/dL (60-99) Calcium Level 9.4mg/dL (8.5-10.1) Total Bilirubin 0.6mg/dL (0.0-1.2) Aspartate Amino Transf (AST/SGOT) 23U/L (0-50) Alanine Aminotransferase (ALT/SGPT) 29U/L (0-44) Alkaline Phosphatase 70U/L (25-150) Total Protein 6.8g/dL (6.4-8.4) Albumin 4.3g/dL (3.4-5.0) Hold Diaz Top Tube Received (Received) ECG Interpretation ECG Interpretation: Sinus Rhythm Rate 50 bpm No ischemic changes Time: 19:30 Interpreted by: ED physician X-Ray Chest Interpretation Chest Xray Interpretation: IMPRESSION: No acute cardiopulmonary disease. Dictated by: Floyd Gil M.D. on 05/05/2017 at 20:03 Interpretation / Wet Read by: Interpret - Radiologist Re-Eval/Medical Decision Med Decision/Clinical Course In summary, 57-year-old male presenting to the ED for evaluation of chest pain, now resolved. Differential includes ACS, PE, PTX, aortic dissection, myocarditis /pericarditis, abdominal etiology such as cholecystitis, MSK pain. Patient did have a stent placed in the LAD 2 months ago and had another vessel with significant disease that was not stented; he states that he has been "really pushing it" at cardiac rehabilitation, most notably on . Today's troponin is elevated at 0.029. EKG demonstrates sinus rhythm with no acute ischemic changes. Low risk for PE by [facility]. No evidence of pneumothorax on chest x-ray or exam. Pain not described as tearing through to the back, CXR w/ no evidence of widened mediastinum, normal neuro exam, and equal pulses to bilateral upper and lower extremities; aortic dissection seems very unlikely. Neither clinical presentation, exam, or EKG seem c/w pericarditis or myocarditis. No abdominal pain or tenderness. Rest of labs reviewed, unremarkable; CBC and CMP grossly within normal limits. Patient took an aspirin earlier today. Discussed with cardiology as per below; appreciate involvement. It appears that he did have an elevated troponin yesterday that was higher than his troponin today, however I am concerned that his elevated troponin may suggest that his known disease may be progressing. The patient was started on a heparin drip and admitted for further management and evaluation. Patient agreeable to plan, no further questions. Source of Hx: Old records Time of Eval: 21:29 Patient Status: Condition improved Re-Evaluation/Progress Note: Patient condition is re-evaluated. He is informed of his current results and the intended treatment plan. Time of Eval: 21:54 Patient Status: Condition improved Re-Evaluation/Progress Note: Heparin drip initiated per back tender paper machine recommendation. Consultation #1: Referral / Consult Name: Warren Reyes MD Consulted With: Cardiology Call Returned at: 21:29 Painter Drum: Will see patient, Will see in office, Agrees with eval, Agrees with plan Consultation #2: Referral / Consult Name: Nav De La Garza MD Consulted With: Hospitalist Call Returned at: 22:32 Painter Drum: Will see patient, Agrees with eval, Agrees with plan, Accepts admit Note: Discussed patient condition and concerning results. Agrees to accept admission. Counseled Regarding: Diagnosis, Lab results, Need for admission Discharge & Departure Primary Impression: Unstable angina Disposition: ADMITTED TO HOSPITAL Discharge Condition All VS Reviewed: Yes Condition: Stable Referrals: Isma Hernandez MD (PCP) Crit Care Except Billable Proc Time Spent: 30-74 minutes (45 minutes) Services Performed: Patient management by me, Time spent at bedside, Reviewing test results, Reviewing imaging, Discussing patient care, Documentation in record, Time with fam/surrogate Critical Care Notes: Please see MDM. 40 minutes of critical care time was spent in the management of this patient. Scribe Attestation Portions of this note were transcribed by Hannah Garcia. Dr. Dhruv Ramirez, personally performed the history, physical exam and medical decision-making; I reviewed and confirmed the accuracy of the information in the transcribed note. Signed by: Hannah Garcia 05/05/17. copies to: Isma Hernandez MD, William B MD May 05, 2017 21:24 [facility] May 05, 2017 21:39 Please see MDM. Scribe Attestation Portions of this note were transcribed by Hannah Garcia. Dr. Dhruv Ramirez, personally performed the history, physical exam and medical decision-making; I reviewed and confirmed the accuracy of the information in the transcribed note. Signed by: Hannah Garcia 05/05/17. copies to: Isma Hernandez MD, William B MD May 05, 2017 21:24 [facility] May 05, 2017 21:39
[2017-05-05] MEDS ORDERED: Heparin 25K Unit/500mL 0.45 NS 25,000 UNIT in IV Premix 1 EACH IV ONE (21:50)
[2017-05-05] MEDS ORDERED: Heparin 5,000 Unit/mL Inj IVPUSH ONE (21:50)
--- NOTE | 2017-05-05 22:42 | PCM.HPMED ---
Subjective Date of Service May 05, 2017 Primary Provider: Admitting Physician: Primary Care Physician: Isma Hernandez MD Attending Physician: Admit Status: From the Emergency Department Chief Complaint: Elevated troponin on outpatient labs, instructed to go to the ED by Dr. Sullivan cardiology History of Present Illness: This is a pleasant 56 Y/O M with history of, GILL, and CAD with Hx of IN 07/2010 , status JUAN DANIEL to LCX artery, history of repeat cath in 02/14/2016 which showed 90% mid left circumflex stenosis distal to the previously deployed stent, now status post 3 mm Xience JUAN DANIEL to the Mid LCX, in February 2017 patient was admitted for chest pain and had distal LAD ischemia with 50% lesion distal to the previous left circumflex stent on cardiac cath, as 50% mid LAD distal to the first diagonal, and 80% LAD lesion distal to the second branch, at that time a 2.25 x 15 JUAN DANIEL was placed and patient was restarted on her Plavix and metoprolol XL 25 mg daily as well as Lipitor increased from 20 mg daily to 40 mg daily. The patient presented to the ED following a phone call from Dr. Reyes today regarding abnormal labs result on routine follow-up lab draw returned today, and he was directed to the ED. Patient was completely asymptomatic upon arrival to the ED and denied chest pain, shortness of breath, cough, dyspnea, headaches, fever, chills, sweats, nausea, vomiting, diaphoresis. Per the ED is edition note, the patient admitted to an episode of anxiety and chest discomfort this afternoon after receiving the results from his labs. He does not believe the "twinge" in his chest this afternoon was anginal. His chest discomfort did not radiate anywhere outside of his chest. Current medication milligrams daily, metoprolol XL 25 mg daily, Lipitor 40 mg daily, Plavix 75 mg daily. Much of the past medical history and cardiac history was taken from Dr. Andrdae's last outpatient note in [facility]. In the ED: Vital signs: Temperature 36.6, pulse 60, rate 16, blood pressure 164/92, O2 97% on room air. Hemogram: Within normal limits Chemistry panel: Within normal limits Troponin elevated 0.029 CXR showed: No acute cardiopulmonary changes. Review of Systems: A comprehensive review of systems was conducted and was negative except as mentioned in history of present illness. Allergies Coded Allergies: enalapril (Unverified Allergy, Unknown, 01/28/16) from scanned pre cardio order Home Medications Scheduled Aspirin (Aspirin) 81 Mg Tablet 81 MG PO DAILY Atorvastatin (Lipitor) 20 Mg Tablet 40 MG PO DAILY Clopidogrel Bisulfate (Plavix) 75 Mg Tablet 75 MG PO DAILY Metoprolol Succinate ER (Metoprolol Succinate ER) 25 Mg Tab.er.24h 25 MG PO DAILY Ranitidine (Zantac) 150 Mg Tablet 150 MG PO BID Scheduled PRN Nitroglycerin SL (Nitrostat) 0.4 Mg Tab.subl 0.4 MG SL Q5MIN PRN PRN For Chest Pain IF SBP > 90 PMH 1. CAD with history of IN and stents 2. GILL 3. GERD Surgical History 1. Cardiac stent placement (2010 & 2015) Social History Hx Alcohol Use: Yes (social) Hx Substance Use: No Hx Tobacco Use: No Smoking Status: Never Smoker Living Arrangement: with Family Exam Vital Signs Vital Sign - Last Date Time Temp Pulse Resp B/P Pulse Ox O2 Delivery O2 Flow Rate FiO2 05/05/17 18:47 36.6 60 16 164/92 97 Room Air Exam General: Alert and oriented 3 in no acute distress resting comfortably in bed speaking in full sentences, jovial. Denied any chest pain. HEENT: NC/AT, eyes, PERRLA, EOMI, neck, soft supple, no adenopathy, no JVD, no masses, no thyromegaly, throat mucous membranes pink and moist, no erythema, no exudates Lungs: CTAB all prieto, no wheezes, no rhonchi, no crackles, no adventitious lung sounds, no use of accessory muscles of respiration, good air movement, good respiratory effort. Heart: Regular rate and rhythm, no murmur, S1-S2 present, no rub, no click, no distant heart sounds, Abdomen: Soft, nontender, nondistended, bowel sounds active, no rebound, no guarding, Genitourinary: No CVA tenderness, no suprapubic tenderness, no Mcmullen catheter. Extremities: Muscle strength, 5 out of 5 upper/lower extremity and symmetric laterally, reflexes 2 out of 4 upper/lower extremity and symmetric bilaterally, pulses equal and symmetric upper/lower extremity including radial and dorsalis pedis, no edema Neurologic: Grossly neurologically intact, PT in full sentences, no focal neurological signs. Skin: Warm dry and intact without rash Psychiatric: Mood is cheerful and mood and affect are congruent and appropriate. Lab and Diagnostics Result Diagram: 05/05/17192905/05/171929 X-Rays, CTs and MRIs Date of Service: 05/05/17 PROCEDURE: X-RAY CHEST ONE VIEW, PORTABLE INDICATIONS: 57 year-old male with chest pain. FINDINGS: Surgical changes and devices: None. Lungs and pleura: No pleural effusions or pneumothorax. Lungs are clear. Mediastinum: Mediastinal contours appear normal. Heart size is normal. Bones and chest wall: No suspicious bony lesions. Overlying soft tissues appear unremarkable. IMPRESSION: No acute cardiopulmonary disease. Dictated by: Floyd Gil M.D. on 05/05/2017 at 20:03 Approved by: Floyd Gil M.D. on 05/05/2017 at 20:04 Assessment & Plan Pleasant 56-year-old male with history of coronary artery disease status post stent of the circumflex in February 2017 secondary to IN, history obstructive sleep apnea, GERD who presented with acute episode of dull midsternal 3 out of 10 chest pain that does not radiate. Elevated troponin was placed on heparin drip and made nothing by mouth for expected coronary cath. # Acute Non ST Elevation Myocardial infarction, with elevated troponin in a patient with known history of IN status post stent, Present on Admission -Cardiology Dr. Jaylin loera has been consulted and is aware of the patient. Recommendations are for coronary cath in the morning, and patient has been placed nothing by mouth and heparin drip has been started. -This patient has history of IN with status post left circumflex artery drug eluting stent, prior moderate disease of the mid left anterior descending artery with severe 80% stenosis of the distal left anterior descending. -LVEF of 60% on most recent echo -EKG, was sinus rhythm with a rate of 60 bpm without signs of ischemic changes -CXR showed no acute cardiopulmonary disease -Hemogram and chemistry panel were normal range -Troponin in the ED 0.029 -Troponin I X 3, -Patient currently nothing by mouth for Coronary Cath procedure in the morning. -O2 Sats keep > 94%. -IV fluids -Continue Metoprolol XL 25 mg daily -Start losartan 25 mg daily -Atorvastatin 40 mg daily -Morphine for pain control -Nitro SL, Nitro [address], Nitro Paste (PRN) -Aspirin 325mg daily -Continue home Plavix 75mg daily -Heparin IV drip (Protamine for reversal if needed) -Continuous Cardiac Monitoring/BP monitoring -Cardio Consult in the morning -AM Labs (Lipid Panel, CBC, CMP, PT/PTT/INR) Chronic problems History of IN and angina status post stenting -On aspirin 81 mg by mouth daily -Plavix 75 mg daily -On PRN nitroglycerin at home Hyperlipidemia -On atorvastatin 20 mg daily Hypertension -Metoprolol succinate ER 25 g daily GERD -Patient takes ranitidine 150 mg by mouth twice a day at home -We will replace with IV Protonix Disposition: Admitted to in patient service with expected length of stay greater than 2 days, secondary to severity of presenting symptoms, treatment plan, complexity of clinical work up, and risk of adverse events. CODE STATUS: Full code PCP: Amos Hernandez M.D. DVT PE prophylaxis: Currently on heparin drip for acute coronary syndrome. Contact: VTE Prophylaxis: Other (currently on heparin drip for acute coronary syndrome) Resuscitation Status: CPR: Attempt Resuscitation Attending Statement The patient was seen and examined together with Dr. Hannah on 05/05 and I agree with the history, exam and plan as outlined in the note above. Alexy Hannah DO May 05, 2017 22:42 Nav De La Garza MD May 06, 2017 03:39
[2017-05-05] MEDS ORDERED: Alum-Mag Hydrox-Simeth 30 mL Suspension PO PRN (23:00)
[2017-05-05] MEDS ORDERED: Ondansetron 2 mg/mL 2 mL Inj IVPUSH PRN (23:00)
[2017-05-05] MEDS ORDERED: Senna-Docusate 8.6-50 mg Tablet PO PRN (23:00)
[2017-05-05] MEDS ORDERED: Polyethylene Glycol (PEG) 17 Gm Powder PO PRN (23:00)
[2017-05-05 23:08] VITALS: BP 151/65; PULSE 57; RESP 16; O2SAT 95
[2017-05-05] MEDS ORDERED: Heparin 25K Unit/500mL 0.45 NS 25,000 UNIT in IV Premix 1 EACH IV SCH (23:10)
[2017-05-05 23:26] VITALS: BP 151/65; PULSE 57; RESP 16; O2SAT 95
[2017-05-05 23:40] VITALS: BP 153/80; PULSE 51; RESP 18; O2SAT 96
[2017-05-06] MEDS: 0.9% Sodium Chloride 1,000 ML IV SCH ×2 (00:25→13:03)
[2017-05-06] MEDS: Sodium Chloride LOK Flush 10 mL Syringe IVFLUSH SCH ×2 (00:30→08:30)
[2017-05-06 01:00] LABS: TROPONIN T 0.031 ug/L (0.0-0.011)
[2017-05-06 01:18] LABS: Magnesium 1.9 mg/dL (1.6-2.6)
[2017-05-06 05:30] VITALS: BP 130/71; PULSE 50; RESP 18; O2SAT 97
[2017-05-06 06:11] VITALS: PULSE 55
[2017-05-06 06:33] VITALS: PULSE 57
[2017-05-06 06:45] LABS: BASOPHILS % (AUTO) 0.1 % (0-3); EOSINOPHILS % (AUTO) 1.2 % (0-5); MONOCYTES % (AUTO) 6.2 % (4-12); Mean Corpuscular Hemoglobin 30.8 pg (27.0-35.0); Mean Corpuscular Volume 88.3 fL (81-100); NEUTROPHILS % (AUTO) 60.4 % (40-74); Platelet Count 152 bil/L (150-400)
[2017-05-06 07:48] LABS: TROPONIN T 0.024 ug/L (0.0-0.011)
--- NOTE | 2017-05-06 07:49 | PCM.PNMED ---
Subjective Date of Service May 06, 2017 Subjective Patient seen and examined. No chest pain. Vitals noted. Exam Vital Signs Vital Sign - Last Date Time Temp Pulse Resp B/P Pulse Ox O2 Delivery O2 Flow Rate FiO2 05/06/17 06:33 57 05/06/17 05:30 36.4 18 130/71 97 Room Air Intake and Output 05/05/17 05/05/17 05/06/17 Cumulative From/Thru 15:00 23:00 07:00 05/05/17 18:47 - 05/06/17 06:33 Intake Total 526 ml 526 ml Output Total 650 ml 650 ml Balance -124 ml -124 ml Intake Oral 0 ml 0 ml IV Total 526 ml 526 ml Output Urine Total 650 ml 650 ml Exam General: Alert and oriented 3 in no acute distress resting comfortably in bed speaking in full sentences, jovial. Denied any chest pain. Lungs: CTAB all prieto, no wheezes, no rhonchi, no crackles, no adventitious lung sounds, no use of accessory muscles of respiration, good air movement, good respiratory effort. Heart: Regular rate and rhythm, no murmur, S1-S2 present, no rub, no click, no distant heart sounds, Abdomen: Soft, nontender, nondistended, bowel sounds active, no rebound, no guarding, Genitourinary: No CVA tenderness, no suprapubic tenderness, no Mcmullen catheter. Psychiatric: Mood is cheerful and mood and affect are congruent and appropriate. Lab and Diagnostics Result Diagram: 05/06/17 0600 05/05/17 1930 X-Rays, CTs and MRIs Date of Service: 05/05/17 PROCEDURE: X-RAY CHEST ONE VIEW, PORTABLE INDICATIONS: 57 year-old male with chest pain. FINDINGS: Surgical changes and devices: None. Lungs and pleura: No pleural effusions or pneumothorax. Lungs are clear. Mediastinum: Mediastinal contours appear normal. Heart size is normal. Bones and chest wall: No suspicious bony lesions. Overlying soft tissues appear unremarkable. IMPRESSION: No acute cardiopulmonary disease. Dictated by: Floyd Gil M.D. on 05/05/2017 at 20:03 Approved by: Floyd Gil M.D. on 05/05/2017 at 20:04 Assessment & Plan Pleasant 56-year-old male with history of coronary artery disease status post stent of the circumflex in February 2017 secondary to MT, history obstructive sleep apnea, GERD who presented with acute episode of dull midsternal 3 out of 10 chest pain that does not radiate. Elevated troponin was placed on heparin drip and made nothing by mouth for expected coronary cath. # Acute Non ST Elevation Myocardial infarction, with elevated troponin in a patient with known history of MT status post stent, Present on Admission -Cardiology Dr. Jaylin loera has been consulted and is aware of the patient. Recommendations are for coronary cath in the morning, and patient has been placed nothing by mouth and heparin drip has been started. -This patient has history of MT with status post left circumflex artery drug eluting stent, prior moderate disease of the mid left anterior descending artery with severe 80% stenosis of the distal left anterior descending. -LVEF of 60% on most recent echo -EKG, was sinus rhythm with a rate of 60 bpm without signs of ischemic changes -CXR showed no acute cardiopulmonary disease -Hemogram and chemistry panel were normal range -Troponin in the ED 0.029, Trended to 0.031 , pending next one -Patient currently nothing by mouth for Coronary Cath procedure in the morning. -O2 Sats keep > 94%. -IV fluids -Continue Metoprolol XL 25 mg daily -Started on losartan 25 mg daily -Atorvastatin 40 mg daily -Morphine for pain control -Nitro SL, Nitro [place], Nitro Paste (PRN) -Aspirin 325mg daily -Continue home Plavix 75mg daily -Heparin IV drip (Protamine for reversal if needed) -Continuous Cardiac Monitoring/BP monitoring Chronic problems History of MT and angina status post stenting -On aspirin 81 mg by mouth daily -Plavix 75 mg daily -On PRN nitroglycerin at home Hyperlipidemia -On atorvastatin 20 mg daily Hypertension -Metoprolol succinate ER 25 g daily GERD -Patient takes ranitidine 150 mg by mouth twice a day at home -We will replace with IV Protonix Disposition: Admitted to in patient service with expected length of stay greater than 2 days, secondary to severity of presenting symptoms, treatment plan, complexity of clinical work up, and risk of adverse events. CODE STATUS: Full code PCP: Amos Hernandez M.D. DVT PE prophylaxis: Currently on heparin drip for acute coronary syndrome. Contact: VTE Prophylaxis: Other (currently on heparin drip for acute coronary syndrome) Resuscitation Status: CPR: Attempt Resuscitation Time spent 35 mins Philip Zendejas MD May 06, 2017 07:49
[2017-05-06 08:00] VITALS: PULSE 57
[2017-05-06 08:03] VITALS: BP 122/73; PULSE 54; RESP 16; O2SAT 97
[2017-05-06] MEDS ORDERED: MeTOProlol XL 25 mg ER24 Tablet PO SCH ×2 (08:30)
--- NOTE | 2017-05-06 11:26 | PCM.CHPCAR ---
Consult Subjective Date of service May 06, 2017 Date of admit May 05, 2017 at 23:17 Provider Requesting Consult Primary Care Physician Primary Care Physician: Isma Hernandez MD History of Present Illness This is a very pleasant 57 yo man with GILL (compliant with CPAP) and CAD - UA s /p PCI to LCX with BMS 07/2010, CAD recurrence with exertional chest pain with 90% mLCX stenosis (distal to previously deployed stent) noted 01/28/2016 and s/p 3 mm Xience JUAN DANIEL to mLCX. On 02/09/2017 Plavix was discontinued after he completed almost three years of dual antiplatelet therapy. On 02/28/2017 he developed unstable angina. He had no EKG changes and negative troponin. Noninvasive ischemic evaluation demonstrated distal LAD ischemia. Subsequent cardiac catheterization on 03/02/2017 demonstrated 50% lesion distal to previously deployed circumflex stents; 50% mid LAD lesion just distal to the first diagonal branch (FFR 0.89); an 80% distal LAD lesion right after second diagonal branch that was treated with Xience 2.25 x 15 drug-eluting stent. He was restarted on Plavix. Toprol-XL 25 mg daily was restarted. (per med records in the past Toprol was associated with severe fatigue). Lipitor was increased from 20 mg daily to 40 mg daily. The patient has been doing well. He has been going to cardiac rehab three times a week working out there without any chest discomfort or WYMAN. He does not have symptoms of nocturnal pulmonary congestion. Denies having palpations, presyncope or syncope. He denies tobacco smoking hx. He has heavy FH of early CAD. he has been following healthy diet and lifestyle. He uses his CPAP regularly. Yesterday he did routine labs ordered by his sales forecast analyst Dr. Andrade and had incidental finding of slightly elevated Trops and was contacted by sales forecast analyst Dr. Reyes and was advised to come to [facility]. The patient states that when he was told that he had abnormal labs and needed to go to hospital, he developed slight chest discomfort/ache in substernal area not radiating anywhere and not aggravated with deep breathing or walking. he did not take any nitro. Chest discomfort subsided spontaneously after couple of hrs. On presentation to ER he was hypertensive with BP 164/92 mmHg. Currently at presentation he is chest pain free. Review of Systems Review of Systems Twelve points of ROS are negative except the ones mentioned in HPI. PMH Past Medical History 1. CAD with history of UT and stents 2. GILL 3. GERD Past Surgical History Cardiac stents placement (2009, 2015, 2016) Scheduled Aspirin (Aspirin) 81 Mg Tablet 81 MG PO DAILY (Reported) Atorvastatin (Lipitor) 20 Mg Tablet 40 MG PO DAILY Clopidogrel Bisulfate (Plavix) 75 Mg Tablet 75 MG PO DAILY Losartan Potassium (Cozaar) 25 Mg Tablet 25 MG PO DAILY Metoprolol Succinate ER (Metoprolol Succinate ER) 25 Mg Tab.er.24h 25 MG PO DAILY Metoprolol Succinate ER (Metoprolol Succinate ER) 25 Mg Tab.er.24h 12.5 MG PO DAILY Scheduled PRN Nitroglycerin SL (Nitrostat) 0.4 Mg Tab.subl 0.4 MG SL Q5MIN PRN PRN For Chest Pain IF SBP > 90 Nitroglycerin SL (Nitrostat) 0.4 Mg Tab.subl 0.4 MG SL Q5MIN PRN PRN For Chest Pain Max 3 dose at a time. Ranitidine (Zantac) 150 Mg Tablet 150 MG PO BID PRN PRN For Epigastric Distress (Reported) Discontinued Medications Nitroglycerin SL (Nitrostat) 0.4 Mg Tab.subl 0.4 MG SL Q5MIN (Reported) Current Inpatient Medications Current Medications Sodium Chloride 10 ml 10 ml DAMION IVFLUSH; Start 05/06/17 at 00:30 Sodium Chloride 1,000 ml @ 80 mls/hr [id number] IV Last administered on 05/06/17 00:25; Admin Dose 80 MLS/HR; Start 05/05/17 at 22:59 Aspirin 325 mg DAILY PO Last administered on 05/06/17 09:12; Admin Dose 325 MG ; Start 05/06/17 at 08:30 Clopidogrel Bisulfate 75 mg DAILY PO Last administered on 05/06/17 08:37; Admin Dose 75 MG; Start 05/06/17 at 08:30 Atorvastatin Calcium 40 mg HS PO; Start 05/06/17 at 21:00 Al Hydrox/Mg Hydrox/Simethicone 30 ml Q6H PRN PO; Start 05/05/17 at 23:00 Ondansetron HCl 4-8 mg prn nausea Q4H PRN IVPUSH; Start 05/05/17 at 23:00 Senna 1 tablet BID PRN PO; Start 05/05/17 at 23:00 Polyethylene Glycol 17 gm DAILY PRN PO; Start 05/05/17 at 23:00 Nitroglycerin 0.4 mg Q5MIN PRN SL; Start 05/05/17 at 23:00 Morphine Sulfate 1-5 mg prn pain not relie... Q5M PRN IVPUSH; Start 05/05/17 at 23:00 Losartan Potassium 25 mg DAILY PO Last administered on 05/06/17 08:37; Admin Dose 25 MG; Start 05/06/17 at 00:20 Metoprolol Succinate 25 mg DAILY PO; Start 05/06/17 at 08:30; Stop 05/06/17 at 08:30; Status DC Famotidine 20 mg BID PO Last administered on 05/06/17 08:38; Admin Dose 20 MG; Start 05/06/17 at 08:30 Metoprolol Succinate 25 mg DAILY PO; Start 05/06/17 at 08:30; Stop 05/06/17 at 09:20; Status DC Metoprolol Succinate 12.5 mg DAILY PO; Start 05/07/17 at 08:30 Allergies: Coded Allergies: enalapril (Unverified Allergy, Unknown, 01/28/16) from scanned pre cardio order Social History Hx Alcohol Use: Yes (social)Hx Substance Use: NoHx Tobacco Use: No Smoking Status: Never Smoker Living Arrangement: with Family Exam Vital Signs Vital Sign - Last Date Time Temp Pulse Resp B/P Pulse Ox O2 Delivery O2 Flow Rate FiO2 05/06/17 08:03 36.6 54 16 122/73 97 Room Air Intake and Output 05/05/17 05/05/17 05/06/17 Cumulative From/Thru 15:00 23:00 07:00 05/05/17 18:47 - 05/06/17 06:33 Intake Total 526 ml 526 ml Output Total 650 ml 650 ml Balance -124 ml -124 ml Intake Oral 0 ml 0 ml IV Total 526 ml 526 ml Output Urine Total 650 ml 650 ml Objective Physical Exam: General: no acute distress Head: normocephalic, atraumatic EENT: MMM, sclerae unicteric Neck: supple, no thyromegaly Pulmo: normal breathing sounds bilaterally, no crackles, no wheezing Cardio: RRR, no murmur appreciated, JVP is not elevated Vascular: no carotid bruits appreciated Abdomen: nontender with palpation Extremities: no LE edema Neuro: A&Ox3, no gross abnormalities Psych: normal affect Lab and Diagnostics Labs Troponin T 0.029 0-> 0.031->0.024. CK and CK MB normal Result Diagram: 05/06/17 0600 05/06/17 0600 X-Rays, CTs and MRIs Echo today: 1) Normal left ventricular thickness, size, wall motion, and systolic function (EF 60-65%). 2) Upper normal right ventricular size with normal function. 3) No significant valvular abnormalities. 4) Compared to the echo done 08/21/2010, no significant change. 12-lead ECG On EKG from admission and from today: sinus rhythm with HR in 50s, no ischemic changes On telemetry: sinus rhythm in 50s and during the night while sleeping in 40s sometimes in 30s, no dysrhythmia. Assessment & Plan Assessment This is a 57 yo gentleman with hx of CAD with s/p PCI to LCX with BMS 07/2010, CAD recurrence with 90% mLCX stenosis (distal to previously deployed stent) noted 01/28/2016 and s/p JUAN DANIEL to mLCX, h/o unstable angina with subsequent cardiac catheterization on 03/02/2017 demonstrated 50% lesion distal to previously deployed circumflex stents; 50% mid LAD lesion just distal to the first diagonal branch (FFR 0.89); an 80% distal LAD lesion right after second diagonal branch that has been treated with JUAN DANIEL. He was admitted to [facility] after incidental finding of slightly elevated Trops. # Slightly elevated tropnins - incidental findings. Troponin T 0.029 0-> 0.031- >0.024 (borderline elevated and stable). CK and CK MB normal, which is reassuring. Patient has known CAD s/p multiple stents placement in Circumflex and in LAD as mentioned above; known residual CAD with 50% lesion distal to previously deployed circumflex stents; 50% mid LAD lesion just distal to the first diagonal branch (FFR 0.89) per last cardiac cath from 03/02/2017. On EKG, he has sinus rhythm, no ischemic changes. On telemetry: sinus rhythm in 50s and during the night while sleeping in 40s sometimes in 30s, no dysrhythmia. His BP is controlled currently. Patient is not having having any symptoms to suggest angina. Echo today was reassuring and showed normal wall motion. Plan: - Stop heparin gtt - Continue ASA 81 mg daily, Clopidogrel 75 mg daily, Metoprolol succinate 12.5 mg daily, Losartan 15 mg daily, Atorvastatin 40 mg daily. - Treadmill nuclear stress test ordered. Ideally, we would like to do it as inpatient but patient is eager to go home as he is asymptomatic. We will do the stress test as outpatient within the next 3 days. # CAD as above. # Hypertension: BP well controlled. Meds as above. # Hyperlipidemia - his LDL is at goal # GILL is on CPAP The case was discussed with on-call Host Coordinator Dr. Reyes who agreed with Assessment and Plan VTE Prophylaxis: Other (currently on heparin drip for acute coronary syndrome) Resuscitation Status: CPR: Attempt Resuscitation Attending Statement ATTENDING ADDENDUM: I saw, examined, and evaluated the patient with Dr. Pelon Sauceda on 05/06/2017 and agree with the note as above along with my edits. Plan is to discharge him today and do treadmill nuclear stress within 3 days as outpatient. Pelon Sauceda PA-C May 06, 2017 09:38 Warren Reyes MD May 06, 2017 13:42
[2017-05-06 12:24] LABS: Creatine Kinase 66 U/L (21-232)
[2017-05-06 12:26] LABS: Creatine Kinase 81 U/L (21-232)
--- NOTE | 2017-05-06 12:42 | DRSVH ---
[facility] [address] [place] [address] Echocardiogram Report Name: DAVID KRISHNAMURTHY te: 05/06/2017 Height: 69 in Hospital Exam Location: [facility] Weight: 214 lb Gender: Male BSA: 2.1 m2 : 1960 Age: 57 yrs BP: 122/73 m mHg Reason For Study: NSTEMI Ordering Physician: Pelon Sauceda Performed By: Abdulkadir Devi Referring Physician: Warren Reyes Interpretation Summary 1) Normal left ventricular thickness, size, wall motion, and systolic function (EF 60-65%). 2) Upper normal right ventricular size with normal function. 3) No significant valvular abnormalities. 4) Compared to the echo done 08/21/2010, no significant change. Procedure: A two-dimensional transthoracic echocardiogram with color flow and Doppler was performed. The study quality was technically adequate. Comparison is made with the echocardiogram of 08/21/10. The patient was in sinus bradycardia with heart rates between 40-50 bpm during the exam. Left Ventricle: The left ventricle is normal in size. There is normal left ventricular wall thickness. The ejection fraction is estimated to be 60-65%. Left ventricular wall motion is normal. Assessment of diastolic parameters indicates normal left ventricular diastolic function and normal filling pressures. Right Ventricle: The right ventricle is at the upper limits of normal in size. The right ventricular systolic function is normal. Atria: Both atria are normal in size. The interatrial septum is intact with no evidence for an atrial septal defect. Mitral Valve: The mitral valve is normal. There is no mitral regurgitation noted. Aortic Valve: The aortic valve is normal in structure and function. There is no aortic valve stenosis. No aortic regurgitation is present. Tricuspid Valve: The tricuspid valve is not well visualized, but is grossly normal. Pulmonary artery pressures cannot be estimated because of the lack of a measurable TR jet velocity. Pulmonic Valve: The pulmonic valve is not well seen, but is grossly normal. There is a trace or physiologic amount of pulmonic regurgitation. Great Vessels: The aortic root is normal size. The ascending aorta is mildly enlarged. The pulmonary artery is normal size. The IVC is of normal diameter and collapses greater than 50% with a sniff. This suggests a low right atrial pressure of 3 mm Hg. Pericardium/ Pleura There is no pericardial effusion. There is no pleural effusion. MMode/2D Measurements & Calculations LVIDd: 4.6 cm RA long axis LVOT diam: 2.1 cm LVIDs: 3.2 cm LA A2 area: 19.5 cm AoV Opening FS: 31.2 % LA A4 area: 18.6 cm RA area EPSS: 0.40 cm LA length (vol) Ao root diam IVSd: 0.93 cm : 17.5 cm LVPWd: 1.1 cm LA vol: 50.7 ml RA vol asc Aorta Diam LA vol index : 53.3 ml RA Ao Arch Diam (Prox : 23.9 ml/m2 : 25.1 mm2 Trans): 2.9 cm LV borden. diameter/BSA LV sys. diameter/BSA RVD1 (basal) TAPSE: 2.6 cm (cm/m^2): 2.2 (cm/m^2): 1.5 Doppler Measurements & Calculations Ao V2 max: 115.3 cm/secMV E max naldo MV E/A: 1.4 PA V2 max Ao max P.3 mmHg : 91.0 cm/sec Med Peak E' Naldo : 85.6 cm/sec Ao mean P.9 mmHg MV A max naldo PA mean PG LVOT Max Naldo : 66.4 cm/sec E/E' med: 9.6 : 1.7 mmHg : 82.5 cm/sec Lat Peak E' Naldo MARY(I,D): 2.4 cm E/E' lat: 9.0 sev ratio: 0.70 E/e' average: 9.3 MV dec time: 0.17 sec Ao V2 mean LV V1 max PG PA V2 mean : 79.5 cm/sec : 63.7 cm/sec Ao V2 VTI LV V1 VTI: 18.8 cm PA pr(Accel) : 30.7 mmHg MARY(V,D): 2.5 cm2 MARY indexed to BSA (cm^2/m^2): 1.1 Reading Physician:12:40 PM
[2017-05-06 13:26] VITALS: BP 128/69; PULSE 49; RESP 16; O2SAT 95
[2017-05-06] MEDS ORDERED: METO-386 PO (13:32)
[2017-05-06] MEDS ORDERED: LOSA25TA2 PO (13:32)
[2017-05-06] MEDS ORDERED: NITR0.4T SL (13:32)
--- NOTE | 2017-05-06 13:33 | PCM.DIMED ---
Discharge Instructions Date of Service May 06, 2017 Dates of Hospitalization May 05, 2017 at 23:17 Discharge Diagnosis Discharge Diagnosis Unstable Angina Diet Discharge Diet: Low fat, Low Sodium, Heart Healthy Activity Discharge Activity: Limited until seen by PCP Patient Instructions Follow-up plan Dr. Reyes's cardiology group will call for a stress test. If you do not hear from his team within 48 hours, please call. Follow-up with PCP in: 1 week Philip Zendejas MD May 06, 2017 13:33
--- NOTE | 2017-05-06 13:37 | PCM.DC.MED ---
Discharge Summary Date of Service May 06, 2017 Dates of Hospitalization Date of Hospital Admission May 05, 2017 at 23:17 Date of Discharge: May 06, 2017 Providers: Admitting Physician: Genevieve De La Garza MD Primary Care Physician: Isma Hernandez MD Attending Physician: Steve Ruff MD Diagnosis at Time of Discharge Diagnosis at Time of Discharge Unstable Angina Procedures XRay, CTs & MRIs Date of Service: 05/05/17 PROCEDURE: X-RAY CHEST ONE VIEW, PORTABLE INDICATIONS: 57 year-old male with chest pain. FINDINGS: Surgical changes and devices: None. Lungs and pleura: No pleural effusions or pneumothorax. Lungs are clear. Mediastinum: Mediastinal contours appear normal. Heart size is normal. Bones and chest wall: No suspicious bony lesions. Overlying soft tissues appear unremarkable. IMPRESSION: No acute cardiopulmonary disease. Dictated by: Floyd Gil M.D. on 05/05/2017 at 20:03 Approved by: Floyd Gil M.D. on 05/05/2017 at 20:04 Brief History This is a very pleasant 57 yo man with GILL (compliant with CPAP) and CAD - UA s /p PCI to LCX with BMS 07/2010, CAD recurrence with exertional chest pain with 90% mLCX stenosis (distal to previously deployed stent) noted 01/28/2016 and s/p 3 mm Xience JUAN DANIEL to mLCX. On 02/09/2017 Plavix was discontinued after he completed almost three years of dual antiplatelet therapy. On 02/28/2017 he developed unstable angina. He had no EKG changes and negative troponin. Noninvasive ischemic evaluation demonstrated distal LAD ischemia. Subsequent cardiac catheterization on 03/02/2017 demonstrated 50% lesion distal to previously deployed circumflex stents; 50% mid LAD lesion just distal to the first diagonal branch (FFR 0.89); an 80% distal LAD lesion right after second diagonal branch that was treated with Xience 2.25 x 15 drug-eluting stent. He was restarted on Plavix. Toprol-XL 25 mg daily was restarted. (per med records in the past Toprol was associated with severe fatigue). Lipitor was increased from 20 mg daily to 40 mg daily. The patient has been doing well. He has been going to cardiac rehab three times a week working out there without any chest discomfort or WYMAN. He does not have symptoms of nocturnal pulmonary congestion. Denies having palpations, presyncope or syncope. He denies tobacco smoking hx. He has heavy FH of early CAD. he has been following healthy diet and lifestyle. He uses his CPAP regularly. Yesterday he did routine labs ordered by his survey instrument operator Dr. Andrade and had incidental finding of slightly elevated Trops and was contacted by survey instrument operator Dr. Reyes and was advised to come to [facility]. The patient states that when he was told that he had abnormal labs and needed to go to hospital, he developed slight chest discomfort/ache in substernal area not radiating anywhere and not aggravated with deep breathing or walking. he did not take any nitro. Chest discomfort subsided spontaneously after couple of hrs. On presentation to ER he was hypertensive with BP 164/92 mmHg. Currently at presentation he is chest pain free. Hospital Course Pleasant 56-year-old male with history of coronary artery disease status post stent of the circumflex in February 2017 secondary to ID, history obstructive sleep apnea, GERD who presented with acute episode of dull midsternal 3 out of 10 chest pain that does not radiate. Elevated troponin was placed on heparin drip and made nothing by mouth for expected coronary cath. # Chest pain, NSTEMI ruled out, unstable angina -Cardiology Dr. Reyes, consulted and is aware of the patient. Considering CK MB was normal, troponin normalized, patient to follow up outpatient for a stress test -This patient has history of ID with status post left circumflex artery drug eluting stent, prior moderate disease of the mid left anterior descending artery with severe 80% stenosis of the distal left anterior descending. -LVEF of 60% on most recent echo -EKG, was sinus rhythm with a rate of 60 bpm without signs of ischemic changes -CXR showed no acute cardiopulmonary disease -Hemogram and chemistry panel were normal range -Troponin in the ED 0.029, Trended to 0.031 and then 0.024 -O2 Sats keep > 94%. -IV fluids -metoprolol 12.5 Qdaily -Started on losartan 25 mg daily -Atorvastatin 40 mg daily -Nitro SL prn chest pain -Aspirin 325mg daily -Continue home Plavix 75mg daily Chronic problems History of ID and angina status post stenting -On aspirin 81 mg by mouth daily -Plavix 75 mg daily -On PRN nitroglycerin at home Hyperlipidemia -On atorvastatin 20 mg daily Hypertension -Metoprolol succinate ER 25 g daily GERD -Patient takes ranitidine 150 mg by mouth twice a day at home Plan is to follow up outpatient for a stress test. Exam Vital Signs (Last) Date Time Temp Pulse Resp B/P Pulse Ox O2 Delivery O2 Flow Rate FiO2 05/06/17 13:26 36.8 49 16 128/69 95 Room Air Test 05/05/17 19:30 05/06/17 00:16 05/06/17 06:00 05/06/17 07:46 Total Bilirubin 0.6mg/dL (0.0-1.2) Aspartate Amino Transf (AST/SGOT) 23U/L (0-50) Alanine Aminotransferase (ALT/SGPT) 29U/L (0-44) Alkaline Phosphatase 70U/L (25-150) Total Protein 6.8g/dL (6.4-8.4) Albumin 4.3g/dL (3.4-5.0) Hold Diaz Top Tube Received (Received) Magnesium Level 1.9mg/dL (1.6-2.6) Pro-B-Type Natriuretic Peptide 60.96pg/mL (0-210) Thyroid Stimulating Hormone (TSH) 2.890uIU/mL (0.450-4.500) White Blood Count 8.4th/mm3 (3.8-10.1) Red Blood Count 4.94mil/mm3 (4.40-5.80) Mean Corpuscular Volume 88.3fL (81-100) Mean Corpuscular Hemoglobin 30.8pg (27.0-35.0) Mean Corpuscular Hemoglobin Concent 34.9% (32.0-37.0) Red Cell Distribution Width 12.7% (12.3-15.4) Platelet Count 152bil/L (150-400) Neutrophils (%) (Auto) 60.4% (40-74) Lymphocytes (%) (Auto) 31.9% (14-46) Monocytes (%) (Auto) 6.2% (4-12) Eosinophils (%) (Auto) 1.2% (0-5) Basophils (%) (Auto) 0.1% (0-3) Sodium Level 143mEq/L (134-144) Potassium Level 3.9mEq/L (3.5-5.2) Chloride Level 106mEq/L (97-108) Carbon Dioxide Level 22mmol/L (18-29) Blood Urea Nitrogen 18mg/dL (6-24) Creatinine 1.05mg/dL (0.76-1.27) Estimat Glomerular Filtration Rate 78mL/min (>59) Glucose Level 91mg/dL (60-99) Calcium Level 8.7mg/dL (8.5-10.1) Total Creatine Kinase 66U/L (21-232) Creatine Kinase MB 1.4ng/mL (0.0-10.4) Creatine Kinase MB % % (0.0-5.0) Troponin T 0.024ug/L (0.0-0.011) Triglycerides Level 117mg/dL (0-149) Cholesterol Level 118mg/dL (100-199) LDL Cholesterol, Calculated 55.600mg/dL (0-99) VLDL Cholesterol 23.400mg/dL HDL Cholesterol 39mg/dL (>39) Cholesterol/HDL Ratio 3.03 (0.0-4.4) Hemoglobin 15.6g/dL (13.8-17.2) Hematocrit 43.8% (41.0-50.0) Activated Partial Thromboplast Time 64.6sec (22.8-33.0) Discharge Medications Discharge Medications Aspirin (Aspirin) 81 Mg Tablet 81 MG PO DAILY (Reported) Atorvastatin (Lipitor) 20 Mg Tablet 40 MG PO DAILY Prescribed by: GENEVIEVE BENNETT Clopidogrel Bisulfate (Plavix) 75 Mg Tablet 75 MG PO DAILY Prescribed by: GENEVIEVE BENNETT Losartan Potassium (Cozaar) 25 Mg Tablet 25 MG PO DAILY Prescribed by: STEVE RUFF MD Metoprolol Succinate ER (Metoprolol Succinate ER) 25 Mg Tab.er.24h 25 MG PO DAILY Prescribed by: GENEVIEVE BENNETT Metoprolol Succinate ER (Metoprolol Succinate ER) 25 Mg Tab.er.24h 12.5 MG PO DAILY Prescribed by: STEVE RUFF MD As needed Nitroglycerin SL (Nitrostat) 0.4 Mg Tab.subl 0.4 MG SL Q5MIN PRN PRN For Chest Pain IF SBP > 90 Prescribed by: GENEVIEVE BENNETT Nitroglycerin SL (Nitrostat) 0.4 Mg Tab.subl 0.4 MG SL Q5MIN PRN PRN For Chest Pain Max 3 dose at a time. Prescribed by: STEVE RUFF MD Ranitidine (Zantac) 150 Mg Tablet 150 MG PO BID PRN PRN For Epigastric Distress (Reported) Followup Plan Follow-up plan Dr. Reyes's cardiology group will call for a stress test. If you do not hear from his team within 48 hours, please call. Discharge Diet: Low fat, Low Sodium, Heart Healthy Discharge Activity: Limited until seen by PCP Follow-up with PCP in: 1 week Time spent 35 mins Steve Ruff MD May 06, 2017 13:37
[2017-05-07] MEDS ORDERED: MeTOProlol XL 25 mg ER24 Tablet PO SCH (08:30)
== END 2017-05-06 14:10 | disposition home or self-care (01) ==
LOC: SED 18:42 → MPC 23:17 → INTOOBSV 23:17
PROVIDERS: ADMIT Hospitalist; ATTEND Hospitalist
DX: I20.0 Unstable angina (principal); I25.10 Atherosclerotic heart disease of native coronary artery without angina pectoris; I35.0 Nonrheumatic aortic (valve) stenosis; G47.33 Obstructive sleep apnea (adult) (pediatric); K21.9 Gastro-esophageal reflux disease without esophagitis; I25.2 Old myocardial infarction; Z88.8 Allergy status to other drugs, medicaments and biological substances; Z95.5 Presence of coronary angioplasty implant and graft; Z79.82 Long term (current) use of aspirin
CPT/HCPCS: 36415; 71010; 80048; 80053; 80061; 82550; 82553; 83036; 83735; 83880; 84443; 84484; 85014; 85018; 85025; 85730; 93005; 96374; 99291; C8929; G0378; J1644; J7030